=== PATIENT | female | born 2000 | race Caucasian/White ===

== ENCOUNTER 2023-02-13 23:31 | Outpatient (CLI) | payer SELFPAY ==
[2023-02-13 23:49] VITALS: BMI 27.2
[2023-02-13 23:56] LABS: Microscopic, Urine URINE MICROSCOPIC (MICROSCOPIC)
[2023-02-14] VITALS: BP 113/66; PULSE 74; RESP 17; TEMP 37; O2SAT 97; BMI 27.2
[2023-02-14 00:01] LABS: Appearance,Urine CLEAR (Clear); Bilirubin,Urine Negative (Negative); Blood, Urine Negative (Negative); Color,Urine YELLOW (Yellow); Glucose,Urine (UA) Negative (Negative); Ketones,Urine Negative (Negative); Leukocyte Esterase,Urine TRACE (Negative); Nitrate,Urine Negative (Negative); Protein,Urine Negative (Negative)
[2023-02-14 00:13] LABS: Bacteria,Urine Trace /lpf; WBC,Urine Occasional #/hpf (0-3)
[2023-02-14 01:24] LABS: Amphetamine/Metha Screen,Urine Negative ng/ml (<1000); Barbiturates Screen,Urine Negative ng/ml (<200)
[2023-02-14 01:25] LABS: Benzodiazepines Screen,Urine Negative ng/ml (<200)
[2023-02-14 01:26] LABS: Cannabinoid Screen,Urine Negative ng/ml (<50); Cocaine Screen,Urine Negative ng/ml (<300)
[2023-02-14 01:27] LABS: Methadone Screen,Urine Negative ng/ml (<300); Opiate Screen,Urine Negative ng/ml (<300)
[2023-02-14 01:28] LABS: Phencyclidine Screen,Urine Negative ng/ml (<25)
== END 2023-02-14 01:30 | disposition home or self-care (01) ==
LOC: OBOUT 23:41 → OB 23:42
PROVIDERS: Referring Provider Nurse Practitioner Obstetrics & Gynecology; Visit Provider Nurse Practitioner Obstetrics & Gynecology
DX: O26.892 Other specified pregnancy related conditions, second trimester (principal); Z3A.24 24 weeks gestation of pregnancy; W19.XXXA Unspecified fall, initial encounter
CPT/HCPCS: 80305; 81001; G0463

== ENCOUNTER → 2023-03-05 15:20 | Outpatient (CLI) | payer MEDICAID, SELFPAY ==
[2023-03-09 08:24] LABS: Neisseria gonorrhoeae, NAA Negative (Negative)
== END ==
PROVIDERS: PCP Obstetrics & Gynecology; Visit Provider Obstetrics & Gynecology
DX: Z34.92 Encounter for supervision of normal pregnancy, unspecified, second trimester (principal); Z3A.26 26 weeks gestation of pregnancy
CPT/HCPCS: 87086; 87491; 87591

== ENCOUNTER → 2023-03-10 14:30 | Outpatient (CLI) | payer MEDICAID, SELFPAY ==
[2023-03-10 15:03] LABS: Basophils % 0.2 % (0.1-2.0); Eosinophils % 0.4 % (0.1-12.0); Hematocrit 31.7 % (37.0-47.0); Hemoglobin 11.4 g/dL (12.2-16.2); Lymphocytes # 0.8 K/mm3 (0.7-4.5); Lymphocytes % 13.5 % (10-50); Mean Corpuscular HGB Conc 35.9 g/dL (31.8-35.4); Mean Corpuscular Hemoglobin 32.8 pg (27.0-31.2); Mean Corpuscular Volume 91.4 fl (81-99); Mean Platelet Volume 8.1 fl (7.4-10.4); Monocytes # 0.3 K/mm3 (0.1-1.0); Monocytes % 5.2 % (1.7-9.3); Neutrophils % 80.6 % (37.0-80.0); Platelet Count 199 K/mm3 (142-424); Red Blood Count 3.47 M/mm3 (4.20-5.40); Red Cell Distribution Width 13.3 % (11.5-17.5); White Blood Count 6.2 K/mm3 (4.8-10.8)
[2023-03-12 11:04] LABS: Rapid Plasma Reagin Ab Titer Non Reactive titer (NonRea<1:1); Rubella Antibodies, IgG <0.90 index (Immune >0.99)
[2023-03-13 13:43] LABS: HIV Screen 4th Generation wRfx Non Reactive; Hepatitis B Surface Antigen Negative; Hepatitis C Antibody Non Reactive
== END ==
PROVIDERS: Visit Provider Obstetrics & Gynecology
DX: Z34.92 Encounter for supervision of normal pregnancy, unspecified, second trimester (principal); Z3A.27 27 weeks gestation of pregnancy
CPT/HCPCS: 36415; 85025; 86593; 86703; 86762; 86850; 87340; 87380; G0432

== ENCOUNTER → 2023-03-14 14:25 | Outpatient (CLI) | payer MEDICAID, SELFPAY ==
--- NOTE | 2023-03-14 14:25 | US_ITS ---
PROCEDURE: US OB /MATERNAL DETAIL CLINICAL INDICATION: 24 week anatomy scan COMPARISON: No exams were available for comparison FINDINGS: Transabdominal sonographic images of the pelvis were obtained. From her last menstrual period she is 28 weeks 2 days. Single viable intrauterine gestation. Cephalic position. Placenta: Posteriorplacenta grade 1. There is an average amount of fluid. MVP 5.3 cm. The cervix appears satisfactory. Closed and measuring 3.2 cm in length. Complete survey performed and was unremarkable on the submitted images as in PACS. No discrete anomalies identified on survey imaging by technologist. Active fetus. Three-vessel cord with satisfactory umbilical cord insertion. 4- chamber heart noted. Aortic arch, LVOT, RVOT, appear normal. Survey of brain & ventricles Unremarkable. Cerebellum, cisterna magna, thalamus, choroid plexus appears normal. Face and neck survey unremarkable. Profile, nasion, lips and nose appeared normal. Diaphragm and chest views unremarkable. Abdomen: Both kidneys noted and unremarkable. Stomach and bladder noted and satisfactory. Spine: Survey of the spine satisfactory with no anomalies identified nor imaged. Cervical, thoracic and lower spine appear normal. Both arms and legs noted. Amniotic Fluid: Adequate. Measurements: Average ultrasound age 27weeks 2days. Estimated due date by ultrasound age 0106/11/2023. Estimated weight 1,032g BPD = 27weeks 4days OFD = 26weeks 6days HC = 26weeks 6days AC = 27weeks 1day FL = 27weeks 3days Growth Percentile= 8 Heart Rate = 142bpm Cerebellum = 27weeks Humerus = 28weeks HC/AC is 1.09 CI is 0.78 FL/BPD is 0.74 FL/AC is 0.23 IMPRESSION: 1. Viable fetus in the cephalic presentation with a posterior placenta grade 1. 2. The fluid is within normal limits. 3. Anatomical scan appears normal. 4. biometry is consistent with the dates. The AC is about 1 week behind. Dictated by: Tadeo Farfan MD 03/15/2023 09:02 Tadeo Farfan MD in [facility] 03/15/2023 09:02
== END ==
LOC: RAD 14:25
PROVIDERS: Visit Provider Obstetrics & Gynecology
DX: Z3A.26 26 weeks gestation of pregnancy; O09.32 Supervision of pregnancy with insufficient antenatal care, second trimester
CPT/HCPCS: 76811

== ENCOUNTER 2023-03-27 10:16 | Outpatient (CLI) | payer MEDICAID, SELFPAY ==
[2023-03-27 10:36] LABS: Basophils % 0.2 % (0.1-2.0); Eosinophils # 0.1 K/mm3 (0.0-0.4); Eosinophils % 1.2 % (0.1-12.0); Hematocrit 30.4 % (37.0-47.0); Hemoglobin 10.9 g/dL (12.2-16.2); Lymphocytes # 0.9 K/mm3 (0.7-4.5); Mean Corpuscular HGB Conc 35.9 g/dL (31.8-35.4); Mean Corpuscular Volume 89.3 fl (81-99); Mean Platelet Volume 8.4 fl (7.4-10.4); Monocytes # 0.3 K/mm3 (0.1-1.0); Monocytes % 4.5 % (1.7-9.3); Neutrophils # 5.9 K/mm3 (1.8-7.8); Neutrophils % 82.2 % (37.0-80.0); Platelet Count 192 K/mm3 (142-424); Red Blood Count 3.41 M/mm3 (4.20-5.40); White Blood Count 7.1 K/mm3 (4.8-10.8)
[2023-03-27 10:56] LABS: Glucose,Fasting 89 mg/dl (74-100)
[2023-03-27 11:30] VITALS: BP 141/72; PULSE 79; RESP 18; TEMP 36.6; O2SAT 100
[2023-03-27 12:10] LABS: Glucose 1 Hour 143 mg/dL (74-100)
== END 2023-03-27 11:30 | disposition home or self-care (01) ==
PROVIDERS: Visit Provider Obstetrics & Gynecology
DX: Z34.92 Encounter for supervision of normal pregnancy, unspecified, second trimester (principal); Z3A.29 29 weeks gestation of pregnancy
CPT/HCPCS: 36415; 82951; 85025; 96372; J2790

== ENCOUNTER 2023-04-22 14:45 | Outpatient (CLI) | payer MEDICAID, SELFPAY ==
[2023-04-22 15:09] VITALS: BMI 29.9
--- NOTE | 2023-04-22 15:10 | US_ITS ---
PROCEDURE: US OB BIOPHYSICAL PROFILE CLINICAL INDICATION: decreased HR COMPARISON: FINDINGS: Transabdominal sonographic images of the uterus were obtained. From her established due date she is 33weeks 4days. The following parameters are obtained: Cervix measures 4.4 cm. Viable fetus in the cephalic presentation with a posterior placenta grade 2 heart rate: 138bpm bpm Amniotic fluid index: 17.06cm, MVP 6.8 cm. Qualitative AFV: 2 breathing movements: 2 Gross body movements: 2 Tone: 2 Biophysical profile score: 8 No obvious anomalies evident.Kidneys, four-chamber heart, bladder, three-vessel cord appear normal. IMPRESSION: 1. Viable fetus in the cephalic presentation with a posterior placenta grade 2. 2. The fluid is within normal limits with an amniotic fluid index of 17.06 cm, MVP 6.8 cm. 3. Biophysical profile is 8/8 with good breathing movement seen. 4. heart rate is normal at 138 beats per minute. Dictated by: Tadeo Farfan MD 04/22/2023 18:56 Tadeo Farfan MD in [facility] 04/22/2023 18:56
[2023-04-22 15:25] VITALS: BMI 28.2
[2023-04-22 15:30] LABS: Microscopic, Urine URINE MICROSCOPIC (MICROSCOPIC)
[2023-04-22 15:47] LABS: Appearance,Urine CLEAR (Clear); Blood, Urine Negative (Negative); Color,Urine YELLOW (Yellow); Glucose,Urine (UA) Negative (Negative); Ketones,Urine Negative (Negative); Leukocyte Esterase,Urine Negative (Negative); Nitrate,Urine Negative (Negative); Protein,Urine TRACE (Negative); Specific Gravity, Urine >= 1.030 (1.005-1.030)
[2023-04-22 16:00] LABS: Barbiturates Screen,Urine Negative ng/ml (<200); Benzodiazepines Screen,Urine Negative ng/ml (<200)
[2023-04-22 16:01] LABS: Amphetamine/Metha Screen,Urine Negative ng/ml (<1000)
[2023-04-22 16:02] LABS: Cocaine Screen,Urine Negative ng/ml (<300); Methadone Screen,Urine Negative ng/ml (<300)
[2023-04-22 16:03] LABS: Bilirubin,Urine 1+ (Negative)
[2023-04-22 16:03] LABS: Cannabinoid Screen,Urine Negative ng/ml (<50)
[2023-04-22 16:04] LABS: Bacteria,Urine Trace /lpf; RBC,Urine Occasional #/hpf (0-3); Squamous Epithelial Cell,Urine 20-50 #/hpf (0-5)
[2023-04-22 16:05] LABS: Phencyclidine Screen,Urine Negative ng/ml (<25)
[2023-04-22 16:06] LABS: Opiate Screen,Urine Negative ng/ml (<300)
== END 2023-04-22 17:00 | disposition home or self-care (01) ==
LOC: OBOUT 14:48 → OB 14:49
PROVIDERS: PCP Student in an Organized Health Care Education/Training Program; Visit Provider Obstetrics & Gynecology
DX: O36.8130 Decreased fetal movements, third trimester, not applicable or unspecified (principal); Z3A.33 33 weeks gestation of pregnancy
CPT/HCPCS: 59025; 76819; 80305; 81001; G0463

== ENCOUNTER 2023-04-23 20:55 | Outpatient (CLI) | payer MEDICAID, SELFPAY ==
[2023-04-23 21:03] VITALS: BMI 29.9
[2023-04-23 21:09] LABS: Microscopic, Urine URINE MICROSCOPIC (MICROSCOPIC)
[2023-04-23 21:11] LABS: Appearance,Urine CLEAR (Clear); Bilirubin,Urine Negative (Negative); Blood, Urine TRACE-L (Negative); Color,Urine YELLOW (Yellow); Glucose,Urine (UA) Negative (Negative); Ketones,Urine Negative (Negative); Leukocyte Esterase,Urine 2+ (Negative); Nitrate,Urine Negative (Negative); Protein,Urine Negative (Negative)
[2023-04-23 21:28] LABS: Benzodiazepines Screen,Urine Negative ng/ml (<200)
[2023-04-23 21:29] LABS: Amphetamine/Metha Screen,Urine Negative ng/ml (<1000); Barbiturates Screen,Urine Negative ng/ml (<200)
[2023-04-23 21:30] LABS: Methadone Screen,Urine Negative ng/ml (<300); RBC,Urine Occasional #/hpf (0-3)
[2023-04-23 21:31] LABS: Cannabinoid Screen,Urine Negative ng/ml (<50); Cocaine Screen,Urine Negative ng/ml (<300)
[2023-04-23 21:32] LABS: Opiate Screen,Urine Negative ng/ml (<300)
[2023-04-23 21:33] VITALS: BP 123/74; PULSE 100; RESP 18; TEMP 37.1; O2SAT 97; BMI 29.9
[2023-04-23 21:33] LABS: Phencyclidine Screen,Urine Negative ng/ml (<25)
== END 2023-04-24 | disposition home or self-care (01) ==
LOC: OBOUT 20:56 → OB 20:56
PROVIDERS: Visit Provider Nurse Practitioner Obstetrics & Gynecology
DX: O47.03 False labor before 37 completed weeks of gestation, third trimester (principal); Z3A.33 33 weeks gestation of pregnancy
CPT/HCPCS: 59025; 80305; 81001; 87086; 96365; G0463

== ENCOUNTER 2023-05-27 16:27 | Outpatient (CLI) | payer MEDICAID, SELFPAY | END 2023-05-27 23:59 | PROVIDERS: PCP Obstetrics & Gynecology; Visit Provider Obstetrics & Gynecology | DX: Z34.90 Encounter for supervision of normal pregnancy, unspecified, unspecified trimester (principal) | CPT/HCPCS: 86403 ==

== ENCOUNTER 2023-05-29 09:59 | Outpatient (CLI) | payer MEDICAID, SELFPAY ==
[2023-05-29 10:12] VITALS: BMI 30.4
[2023-05-29 10:30] VITALS: BP 123/83; PULSE 97; RESP 16; TEMP 37.1; O2SAT 100; BMI 30.4
[2023-05-29 11:01] LABS: Microscopic, Urine URINE MICROSCOPIC (MICROSCOPIC)
[2023-05-29 11:08] LABS: Bilirubin,Urine Negative (Negative); Blood, Urine Negative (Negative); Color,Urine YELLOW (Yellow); Glucose,Urine (UA) Negative (Negative); Ketones,Urine TRACE (Negative); Leukocyte Esterase,Urine 1+ (Negative); Nitrate,Urine Negative (Negative); PH,Urine 6.5 (5.0-8.5); Protein,Urine TRACE (Negative); Urobilinogen,Urine 0.2 EU/dl (0.2)
[2023-05-29 11:23] LABS: Barbiturates Screen,Urine Negative ng/ml (<200); Benzodiazepines Screen,Urine Negative ng/ml (<200)
[2023-05-29 11:24] LABS: Amphetamine/Metha Screen,Urine Negative ng/ml (<1000)
[2023-05-29 11:25] LABS: Cocaine Screen,Urine Negative ng/ml (<300)
[2023-05-29 11:26] LABS: Cannabinoid Screen,Urine Negative ng/ml (<50)
[2023-05-29 11:27] LABS: Opiate Screen,Urine Negative ng/ml (<300); Phencyclidine Screen,Urine Negative ng/ml (<25)
[2023-05-29 11:30] LABS: Appearance,Urine Cloudy (Clear)
[2023-05-29 11:32] LABS: Squamous Epithelial Cell,Urine 50-100 #/hpf (0-5)
[2023-05-29 11:35] LABS: Bacteria,Urine 1+ /lpf; Methadone Screen,Urine Negative ng/ml (<300); Mucus,Urine 1+ /lpf
== END 2023-05-29 11:13 | disposition home or self-care (01) ==
LOC: OBOUT 10:01 → OB 10:02
PROVIDERS: Visit Provider Obstetrics & Gynecology
DX: O60.03 Preterm labor without delivery, third trimester (principal); Z3A.49 Greater than 42 weeks gestation of pregnancy; Z3A.38 38 weeks gestation of pregnancy
CPT/HCPCS: 59025; 80307; 81001; 87086; G0463

== ENCOUNTER 2023-05-30 03:02 | Inpatient (IN) | payer MEDICAID, SELFPAY ==
[2023-05-30 03:06] VITALS: BMI 30.4
[2023-05-30 03:10] VITALS: BP 123/77; PULSE 85; RESP 17; TEMP 36.8; O2SAT 100
[2023-05-30 03:42] LABS: Basophils % 0.2 % (0.1-2.0); Eosinophils % 0.5 % (0.1-12.0); Hematocrit 29.9 % (37.0-47.0); Hemoglobin 10.3 g/dL (12.2-16.2); Lymphocytes # 1.1 K/mm3 (0.7-4.5); Lymphocytes % 17.4 % (10-50); Mean Corpuscular HGB Conc 34.5 g/dL (31.8-35.4); Mean Corpuscular Hemoglobin 29.5 pg (27.0-31.2); Mean Corpuscular Volume 85.6 fl (81-99); Mean Platelet Volume 8.7 fl (7.4-10.4); Monocytes # 0.4 K/mm3 (0.1-1.0); Monocytes % 6.6 % (1.7-9.3); Neutrophils # 4.7 K/mm3 (1.8-7.8); Neutrophils % 75.4 % (37.0-80.0); Platelet Count 192 K/mm3 (142-424); Red Blood Count 3.49 M/mm3 (4.20-5.40); Red Cell Distribution Width 15.1 % (11.5-17.5); White Blood Count 6.2 K/mm3 (4.8-10.8)
[2023-05-30 03:50] LABS: Amphetamine/Metha Screen,Urine Negative ng/ml (<1000); Barbiturates Screen,Urine Negative ng/ml (<200)
[2023-05-30 03:51] LABS: Benzodiazepines Screen,Urine Negative ng/ml (<200); Cannabinoid Screen,Urine Negative ng/ml (<50)
[2023-05-30 03:52] LABS: Cocaine Screen,Urine Negative ng/ml (<300)
[2023-05-30 03:53] LABS: Methadone Screen,Urine Negative ng/ml (<300); Opiate Screen,Urine Negative ng/ml (<300)
[2023-05-30 03:54] LABS: Phencyclidine Screen,Urine Negative ng/ml (<25)
[2023-05-30] MEDS: DEXTROSE 5%-LACTATED RINGERS 1,000 ML 125 ML IV ×2 (04:10→20:01)
[2023-05-30] MEDS: OXYTOCIN/RINGERS LACTATE 30 UNITS/500 ML BAG IV ×2 (04:10→23:54)
[2023-05-30] MEDS: LACTATED RINGERS 1000ML 1,000 ML 250 ML IV (04:11)
[2023-05-30 04:35] VITALS: BP 123/77; PULSE 85; RESP 17; TEMP 36.8; O2SAT 100; BMI 30.4
--- NOTE | 2023-05-30 07:30 | P.CONPHA_ITS ---
Pharmacy Intervention Comments: MEDICATION RECONCILIATION COMPLETED ON PATIENT USING LIST FROM KITCHEN CLERK OFFICE. -KULWANT LEON, ELLAD
--- NOTE | 2023-05-30 07:30 | HMH.PHAINT1 ---
Pharmacy Intervention Comments: MEDICATION RECONCILIATION COMPLETED ON PATIENT USING LIST FROM [facility] SUPERVISOR OFFICE. -KULWANT LEON, ELLAD
--- NOTE | 2023-05-30 09:33 | P.HP_ITS ---
History of Present Illness *Admission Date: 05/30/23 *Reason for visit:: Induction *History of present illness: Sonia Trujillo is a 22-year-old G1, P0 who presented to labor and delivery this morning for an elective induction of labor. Today she is 39 weeks and 0 days gestation based on last menstrual period confirmed by second trimester ultrasound. She has an TAINA of 06/06/2023. Her was complicated by late to care several missed appointments. On presentation patient endorsed good movement and denies any leakage of fluid or vaginal bleeding. A-, antibody negative, HIV negative, hepatitis B negative, hepatitis C negative, syphilis negative, gonorrhea negative, chlamydia negative, rubella nonimmune She did not complete her 1 hour GTT screening Her GBS was collected at 38 weeks and 4 days gestation and has not resulted yet. [facility] Disclaimer: The information contained in this section may have been updated after the patient was seen, as this information can be updated by other users. 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 IUGR (intrauterine growth restriction) Late care Surgical History No history of previous surgery Family History Other Family history non-contributory Social History (Updated 05/30/23 @ 04:34 by Junie Terry RN) Smoking Status: Current every day smoker tobacco type: e-cigarettes alcohol intake: never substance use type: denies use current occupational status: unemployed Travel in the last 8 weeks: None Review of Systems Review of Systems Review of systems (narrative): Review of Systems Constitutional: Denies fever, chills, and sweats Eyes: Denies vision change/ pain Respiratory: Denies cough and shortness of breath Cardiovascular: Denies chest pain and lightheadedness Gastrointestinal: Admits abdominal pain with contractions. Denies nausea, vomiting. Genitourinary: Denies dysuria and incontinence Musculoskeletal: Denies shoulder pain and back pain Neurological: Denies change in speech or headaches Meds Home Medications and Allergies Home Medications Medication Instructions Recorded Confirmed Type ondansetron 4 mg disintegrating 4 mg PO Q6HP PRN nausea and 05/30/23 05/30/23 History tablet vomiting vits no.126-ferrous fum 1 tab PO DAILY Supplement 05/30/23 05/30/23 History 28 mg iron-folic acid 800 mcg tablet (Classic ) New Prescriptions to Start Prescriptions: Allergies Allergy/AdvReac Type Severity Reaction Status Date / Time cinnamon Allergy Unknown Verified 05/27/23 10:41 Exam Data for Last 24 hours Vital signs and Labs for Last 24 Hours: Temp Pulse Resp BP Pulse Ox O2 Del Method 98.2 F 85 17 123/77 100 Room Air 05/30/23 04:35 05/30/23 04:35 05/30/23 04:35 05/30/23 04:35 05/30/23 04:35 05/30/23 04:35 Laboratory Results - last 24 hr 05/30/23 03:10: Urine Opiates Screen Negative, Urine Methadone Screen Negative, Ur Barbituates Screen Negative, Ur Phencyclidine Scrn Negative, Ur Amphetamines Screen Negative, U Benzodiazepines Scrn Negative, Urine Cocaine Screen Negative, U Marijuana (THC) Screen Negative 05/30/23 03:28: WBC 6.2, RBC 3.49 L, Hgb 10.3 L, Hct 29.9 L, MCV 85.6, MCH 29.5, MCHC 34.5, RDW 15.1, Plt Count 192, MPV 8.7, Neut % (Auto) 75.4, Lymph % (Auto) 17.4, [place] % (Auto) 6.6, Eos % (Auto) 0.5, Baso % (Auto) 0.2, Neut # (Auto) 4.7, Lymph # (Auto) 1.1, [place] # (Auto) 0.4, Eos # (Auto) 0.0, Baso # (Auto) 0.0, Blood Type A Negative, Antibody Screen Negative I & O for Last 24 hours: Intake & Output 05/27/23 05/28/23 05/29/23 05/30/23 23:59 23:59 23:59 23:59 Weight 194 lb 0.003 oz Narrative: General: patient is alert oriented in no acute distress and responds appropriately to questions. HEENT: NCAT, EOMI, moist mucous membranes, neck supple with full ROM Cardiovascular: RRR +S1/S2, no murmurs or rubs Pulmonary: Clear to auscultation bilaterally, nonlabored breathing, symmetric chest rise Abdominal: Gravid abdomen appropriate for gestation. No guarding, rebound, or tenderness noted. SVE: 2/60/-3 on arrival Extremities: trace edema, no tenderness or cyanosis noted Skin: Normal turgor, intact, warm. Negative for erythema, pallor, petechia, or lesions Neurologic: Negative for sensory or motor deficit Psychiatric: Normal affect, normal thought process, good judgment and insight, no depression or anxious mood appreciated. *Routine HEENT Exam Head: Present normocephalic and atraumatic Eye: Present EOMI, PERRL and normal accommodation; Absent conjunctival icterus, scleral injection, nystagmus or exophthalmos ENT: Present mucous membranes moist *Routine Respiratory Exam Respiratory: Present CTA bilaterally, normal respiratory effort, able to speak in complete sentences and symmetric chest movement; Absent accessory muscle use, decreased breath sounds, rales, respiratory distress, wheezes, distant breath sounds or diminished air movement *Routine Cardiovascular Exam Cardiovascular: Present RRR, Normal S1 and Normal S2; Absent murmur or gallop *Routine Abdominal Exam Abdominal: Present soft and normoactive bowel sounds; Absent tenderness, distended, rebound or guarding *Routine Rectal Exam Rectal:: deferred *Routine Genitalia Exam Genitalia:: normal female Assessment and Plan *Assessment and plan (1) Anemia affecting first : Status: Acute Category: Medical Code(s): O99.019 - Anemia complicating , unspecified trimester (2) Rh negative status during : Status: Acute Category: Medical Code(s): O26.899 - Other specified related conditions, unspecified trimester; Z67.91 - Unspecified blood type, Rh negative (3) Late care: Status: Acute Category: Medical Code(s): O09.30 - Supervision of with insufficient care, unspecified trimester (4) Elective induction of labor planned: Status: Acute Category: Medical Plan - Monitor vitals - Admit to L&D for induction of labor - Plan for induction per pitocin protocol with AROM. AROM completed around 0810 with clear fluid. Infant and mom tolerated exam well. Exam at that time was /-2 - External FHR and TOCO monitor - GBS unknown/ Blood type: A-. antibody negative - Hemoglobin: 10.3, Plt: 192 - Plan for epidural - Anticipate vaginal delivery of Male : Chaimnisa Galarza Serenity Persaud #Rubella Nonimmune -Group Social Worker and vaccinate
--- NOTE | 2023-05-30 10:00 | EXP.ANES.CKL ---
[facility] Disclaimer: The information contained in this section may have been updated after the patient was seen, as this information can be updated by other users. 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 IUGR (intrauterine growth restriction) Late care Surgical History No history of previous surgery Family History Other Family history non-contributory Social History Smoking Status: Current every day smoker tobacco type: e-cigarettes alcohol intake: never substance use type: denies use current occupational status: unemployed Travel in the last 8 weeks: None [facility] Anesthesia Checklist Patient Identification Patient Identification: Arm Band and Verbal (Name & ) Structural Data Admitted From: Inpatient Planned Operative Procedure/s: Labor epidural Consent for Planned Operative Procedure(s) Verified: Yes NPO Status Verified Time NPO: 00:00 Chart Verification Results Verified: CBC and BMP Additional verifications Patient : Yes Anesthesia Reactions: No Airway Assessment Mallampati Score:: Class II C-Spine Mobility Assessed: Yes TMJ Mobility Assessed: Yes Dentition: Good Dentition Neurological Assessment Level of Consciousness: Awake Hx Seizures: No Numbness or tingling in extremities: No Anesthesia Plan Anesthesia Risk discussed: Yes Anesthesia Plan: Verified ASA Class: II Anesthesia Type: Epidural
[2023-05-30] MEDS: ALUMINUM/MAGNESIUM/SIMETHICONE 30ML UDC 30 ML PO ×2 (11:30→15:18)
--- NOTE | 2023-05-30 11:33 | SW/DCPLANNER ---
Addendum entered by Nitza Purcell 06/09/23 07:31: Infant cord screen is NEGATIVE. Original Note: I received a referral on this patient regarding: lack of care. Patient did not start care till February 2023 due to someone using her SSN and not having insurance. Patient stated this situation has been taken care of now. Patient is planned to delivered infant female today: Chaim Persaud. Infant's father was present at the time of my visit: Lex Persaud. Patient stated this is her first child. Patient, Lex, and patient's aunt and uncle (Nayan and Tamia Lafleur) will reside at [address] [place] [address] in [place] [address]. Patient's contact number is [phone]. Patient is interested in HANDS: I will make contact today and have them reach out to patient. Patient will also be making contact w/ WIC today to establish w/ services. Patient stated that she does have the following items at home: crib, carseat, clothing, diapers and will plan to breastfeed. PED MD will be Dr Bacon and patient stated that she will have transportation to all follow up appointments. [facility] Resource List will be provided to this patient. OB staff will follow up w/ me if any questions/needs after delivery.
[2023-05-30] MEDS: METOCLOPRAMIDE HCL 10MG/2ML VIAL 10 MG IVP (15:17)
[2023-05-30] MEDS: diphenhydrAMINE 50MG/ML VIAL 25 MG IV (21:51)
[2023-05-30] MEDS: CALCIUM CARBONATE 500MG CHEWTAB 1000 MG PO (21:54)
[2023-05-30] MEDS: AMPICILLIN SODIUM 2 GM in 0.9 % SODIUM CHLORIDE 100 ML IV (22:00)
[2023-05-31] VITALS (7 sets, daily range): BP systolic 112–127; BP diastolic 56–65; PULSE 67–102; RESP 17–18; TEMP 36.6–36.7; O2SAT 97–100
[2023-05-31] MEDS: ALUMINUM/MAGNESIUM/SIMETHICONE 30ML UDC 30 ML PO (00:02)
[2023-05-31] MEDS: ACETAMINOPHEN 1,000 MG/100 ML ML 400 MG IV (02:40)
[2023-05-31] MEDS: MORPHINE 2MG/ML SYRINGE 1 MG IV (02:40)
[2023-05-31] MEDS: AMPICILLIN SODIUM 2 GM in 0.9 % SODIUM CHLORIDE 100 ML IV (03:32)
[2023-05-31] MEDS: CEFAZOLIN 1GM VIAL 2 GM (05:30)
--- NOTE | 2023-05-31 06:40 | EXP.DN ---
Delivery Note Delivery Date:: 05/31/23 Delivery Time:: 06:10 Anesthesia Type: Spinal Was labor medically induced?: Yes Induction method: per pitocin protocol Gestational age (weeks): 39 Infant delivered prior to 39 weeks?: No Infant Gender: Female at 1 minute: 8 (2color) at 5 minutes: 9 (1color) Delivery Procedure:: Preoperative diagnosis: 1. at 39 completed weeks gestation, vertex 2. Rh negative 3. GBS unknown 4. Elective delivery, maternal request Postoperative diagnosis: 1. at 39 completed weeks gestation, vertex 2. Rh negative 3. GBS unknown 4. Elective delivery, maternal request Medications: 2 g IV Ancef. 500 mg IV azithromycin. 2 doses in labor ampicillin Findings: 1. Live viable femaleinfant: Chaim Michell Serenity Persaud. Weight: 8pounds 4ounces. Apgars 8 and 9 at 1 and 5 minutes respectively 2. Normal-appearing fallopian tubes and ovaries bilaterally Anesthesia: Zulma Foster Surgeon: Montserrat Peng DO EBL: 250 mL Procedure: Primary low transverse section Summary: Sonia Trujillo is a 22-year-old who presented for an elective induction of labor at 39 weeks gestation. Pitocin was started, per protocol. She experienced artificial rupture of membranes, clear fluid. The patient progressed through labor normally throughout the day. I checked her at approximately 530 and her cervix was noted to be 6-7/80/-2. At this time the patient was comfortable with an epidural and her Pitocin was at 18. A few hours after this the patient's epidural came out and she was in significant amount of pain. Anesthesia came in to replace epidural and I rechecked her cervix this was at approximately 9:30 at night and the patient had made no cervical change. She was very tired and worn out and the decision was made to turn the Pitocin off and give her a 2-hour break to let her eat something small and then restart the induction with a fresh bag of Pitocin. At approximately 1130 the patient was resting and Pitocin was restarted for the induction. Shortly after this the patient started having panic attacks and saying that her pain was out of control. On exam light gentle touch on her back where her epidural was caused her to scream and cry. Anesthesia was again consulted for evaluation. At this time the patient started requesting a elective primary delivery. Anesthesia was able to bolus her and give her some relief. At approximately 2:30 in the morning the patient refused to continue with induction and requested an elective primary delivery. Please see RN charting for official timeline. Given her induction break earlier in the evening delivery was postponed to achieve n.p.o. status Procedure explained in its entirety. The patient was counseled on the risks and benefits of section including bleeding, vascular injury, infection, and injury to the surrounding structures. I explosively talked to the patient about the risk of multiple deliveries. I discussed the increased risk to the patient with increased bowel and bladder injuries. I discussed the increased risks to the patient and future infants with placenta previa and placenta accreta spectrum increased incidence. I explained alternatives in detail to the patient. The patient continued to request primary elective delivery. Discussed hemorrhage requiring life saving blood transfusion resulting in blood born viral infection or allergic reaction was explained and the patient consented to blood transfusion. Possible need for further operative measures prolonging recovery time and hospitalization reviewed to include hysterectomy. Procedure explained in its entirety and patient had no further questions. Consented to procedure. The patient was taken back to the operating room where adequate spinal anesthesia was obtained. Pneumatic compression stockings applied to lower extremities. Above listed antibiotics were administered for infection prophylaxis. She was placed in the dorsal supine position with a leftward tilt. Urinary catheter had previously been placed and was noted to be draining blood-tinged urine. The patient was prepped and draped in sterile fashion. Anesthesia was tested and and found to be adequate. A Pfannenstiel skin incision was made with the scalpel. Subcutaneous bleeding vessels were cauterized with the bovie. The incision was taken down to the fascia with the bovie. The fascia was knicked in the midline and extended laterally with Doe's. The superior aspect of the fascia was grasped with Christo clamps and the rectus muscle was taken down bluntly. The rectus muscle was sharply dissected from the midline with Monica. This process was repeated inferiorly. The rectus muscles were in the midline, peritoneum was identified and entered bluntly. Antolin O retractor was placed. The lower uterine segment was easily identified, sharply incised, and entered bluntly with the surgeon's index finger. Incision was then extended in a superior and inferior fashion by blunt separation. The fetus was in cephalic presentation. The head was carefully elevated out of the pelvis. Of note, the head was not engaged at all with the significant amount of caput. Fundal pressure was applied when head was brought into incision. The infants head was delivered without difficulty. The shoulder and body followed without complication. The mouth and nose were suctioned with a bulb. The umbilical cord was clamped and cut. was taken to warmer for evaluation by the tabulating supervisor. Cord blood was collected. The placenta was delivered via fundal massage. IV Pitocin was initiated. The uterus was exteriorized and covered with wet lap sponge. Inside of the uterus was gently cleared of blood and clots with lap sponge. The hysterotomy was closed with 0 Monocryl in a running locked fashion. The lower uterine segment was visualized and noted to be hemostatic. The ovaries and tubes were found to be normal. The posterior aspect of the uterus was cleared of blood clot with a damp lap sponge. The uterus and ovaries were then returned to the abdominal cavity. The gutters were inspected bilaterally and cleared of blood and clots with lap sponges. The uterine incision was reinspected and hemostasis noted. Antolin O retractor was removed. The peritoneum was reapproximated using 2-0 Monocryl in a nonlocked running fashion. The fascia was closed in a running nonlocked fashion using 0 Vicryl. Fascia was noted as not having gaps or defects. The subcutaneous fat was closed with 2-0 Monocryl interrupted sutures x 3. Skin was closed with INSORB stapler in a subcuticular fashion. Patient tolerated the procedure well. All counts were correct x3 per nursing. Patient was taken to OB PACU and was stable in recovery room.
--- NOTE | 2023-05-31 06:52 | P.PNANES_ITS ---
[facility] Anesthesia Record Part I Anesthesia Record I Intake, IV Amount: 700 Hydration: Adequate Estimated blood loss (mL): 250 Urine output (mL): 150 Blood Pressure: 113/56 SaO2: 97 Pulse Rate: 102 Airway Patency: Patent Respiratory Rate: 17 Temperature: 98.1 F Patient is:: Awake Stable to PACU at:: 06:42
[2023-05-31] MEDS: MEPERIDINE 25MG/ML 1ML SYRINGE 25 MG IV (06:57)
--- NOTE | 2023-05-31 07:12 | SUR.PHASEI ---
0712- detailed report given to [facility] [place]. VSS, dressings CDI.
[2023-05-31] MEDS: KETOROLAC 30MG/ML VIAL 30 MG IV ×3 (07:42→19:43)
[2023-05-31] MEDS: OXYTOCIN/RINGERS LACTATE 30 UNITS/500 ML BAG 40 UNITS IV (07:47)
[2023-05-31] MEDS: miSOPROStoL 200 MCG TABLET 1000 MCG RC (08:50)
[2023-05-31] MEDS: ACETAMINOPHEN 500MG TAB 1000 MG PO ×3 (09:41→21:31)
[2023-05-31] MEDS: OXYCODONE 5MG IMMEDIATE RELEASE TABLET 5 MG PO ×2 (11:41→15:43)
[2023-05-31] MEDS: CEFAZOLIN SODIUM 2 GM in 0.9 % SODIUM CHLORIDE 100 ML IV ×2 (13:20→21:31)
[2023-05-31] MEDS: HYDROMORPHONE 2MG/ML SYRINGE 2 MG IV (18:11)
[2023-06-01] MEDS: OXYCODONE 5MG IMMEDIATE RELEASE TABLET 5 MG PO ×2 (04:03→18:44)
[2023-06-01] MEDS: ACETAMINOPHEN 500MG TAB 1000 MG PO ×4 (04:04→22:12)
[2023-06-01 04:12] VITALS: BP 111/52; PULSE 70; RESP 18; TEMP 36.6; O2SAT 99
[2023-06-01 08:16] VITALS: BP 116/55; PULSE 75; RESP 18; TEMP 36.4; O2SAT 100
[2023-06-01] MEDS: KETOROLAC 30MG/ML VIAL 30 MG IV (08:25)
[2023-06-01 09:34] LABS: Basophils % 0.2 % (0.1-2.0); Eosinophils % 0.1 % (0.1-12.0); Hematocrit 24.4 % (37.0-47.0); Hemoglobin 8.2 g/dL (12.2-16.2); Lymphocytes % 12.5 % (10-50); Mean Corpuscular HGB Conc 33.6 g/dL (31.8-35.4); Mean Corpuscular Hemoglobin 29.1 pg (27.0-31.2); Mean Corpuscular Volume 86.7 fl (81-99); Mean Platelet Volume 8.5 fl (7.4-10.4); Monocytes # 0.3 K/mm3 (0.1-1.0); Monocytes % 3.3 % (1.7-9.3); Neutrophils # 6.7 K/mm3 (1.8-7.8); Neutrophils % 83.8 % (37.0-80.0); Platelet Count 188 K/mm3 (142-424); Red Blood Count 2.82 M/mm3 (4.20-5.40); Red Cell Distribution Width 15.3 % (11.5-17.5); White Blood Count 7.9 K/mm3 (4.8-10.8)
[2023-06-01] MEDS: RHO(D) IMMUNE GLOBULIN 1,500 UNIT SYRINGE IM (12:44)
--- NOTE | 2023-06-01 15:07 | EXP.PN ---
Subjective *Date: 06/01/23 *Time: 22:07 Interval history: Sonia Trujillo is a 22 yo POD#1 from a primary delivery secondary to maternal request. She presented for an elective induction at 39 weeks initially. Labor was slow but uncomplicated. This morning the patient denies any pain and is sitting up in the chair. FOB is bedside caring for the . She is both breast feeding and pumping and doing great with both. States her lochia is scant. tolerating PO wihtout N/V. Ambulating, voiding difficulty or dysuria. Denies chest pain shortness of breath or pain in her legs. No further complaints at this time. Exam Data for Last 24 hours Vital signs and Labs for Last 24 Hours: Temp Pulse Resp BP Pulse Ox O2 Del Method 97.5 F L 75 18 116/55 L 100 Room Air 06/01/23 08:16 06/01/23 08:16 06/01/23 08:16 06/01/23 08:16 06/01/23 08:16 06/01/23 08:16 Laboratory Results - last 24 hr 06/01/23 08:47: WBC 7.9 D, RBC 2.82 L, Hgb 8.2 L, Hct 24.4 L, MCV 86.7, MCH 29.1, MCHC 33.6, RDW 15.3, Plt Count 188, MPV 8.5, Neut % (Auto) 83.8 H, Lymph % (Auto) 12.5, [place] % (Auto) 3.3, Eos % (Auto) 0.1, Baso % (Auto) 0.2, Neut # (Auto) 6.7, Lymph # (Auto) 1.0, [place] # (Auto) 0.3, Eos # (Auto) 0.0, Baso # (Auto) 0.0, Screen Negative, Baby's Rh Status Positive, Rhogam Infusion Rhogam release I & O for Last 24 hours: Intake & Output 05/29/23 05/30/23 05/31/23 06/01/23 23:59 23:59 23:59 23:59 Intake Total 700 / 700 Output Total 900 / 900 Balance -900 / -900 700 / 700 Weight 194 lb 0.003 oz Narrative: General: patient is alert oriented in no acute distress and responds appropriately to questions. Appears to be in minimal pain. Sitting up in the chair and doing well HEENT: NCAT, EOMI, moist mucous membranes, neck supple with full ROM Cardiovascular: RRR +S1/S2, no murmurs or rubs Pulmonary: Clear to auscultation bilaterally, nonlabored breathing, symmetric chest rise Abdominal: Fundus at the umbilicus, firm, and tenderness appropriate for the period. Extremities: 2+ edema, no tenderness or cyanosis noted Skin: Normal turgor, intact, warm. Negative for erythema, pallor, petechia, or lesions. Incision is clean dry and intact. It is open to air and healing well. no signs of drainage, redness or infection Neurologic: Negative for sensory or motor deficit Psychiatric: Normal affect, normal thought process, good judgment and insight, no depression or anxious mood appreciated. Constitutional Constitutional: no acute distress *Routine HEENT Exam Head: Present normocephalic Eye: Present EOMI and PERRL ENT: Present mucous membranes moist *Routine Neck Exam Neck: Present supple; Absent lymphadenopathy *Routine Respiratory Exam Respiratory: Present CTA bilaterally *Routine Cardiovascular Exam Cardiovascular: Present RRR *Routine Abdominal Exam Abdominal: Present soft and normoactive bowel sounds; Absent tenderness *Routine Extremities Exam Extremities: Present edema; Absent cyanosis or clubbing *Routine Skin Exam Skin: Present warm; Absent rash *Routine Neurological Exam Neurological: Present alert and oriented X3 Assessment and Plan *Assessment and plan (1) Elective induction of labor planned: Status: Acute Category: Medical (2) Rh negative status during : Status: Acute Category: Medical Code(s): O26.899 - Other specified related conditions, unspecified trimester; Z67.91 - Unspecified blood type, Rh negative (3) Late care: Status: Acute Category: Medical Code(s): O09.30 - Supervision of with insufficient care, unspecified trimester (4) : Status: Acute Category: Medical Code(s): Z34.90 - Encounter for supervision of normal , unspecified, unspecified trimester (5) delivery delivered: Status: Acute Category: Medical Code(s): O82 - Encounter for delivery without indication (6) Anemia, : Status: Acute Category: Medical Code(s): O90.81 - Anemia of the puerperium Plan Stable. POD#1 s/p PLTCS -Doing well. VSS. Serial lochia and fundal checks. -A-/antibody negative - rhogam indicated based on review of chart -breast feeding (and pumping), female infant -Contraception: IUD -Follow-up 2 weeks for routine visit and incision check #Anemia -Hemoglobin: 10.3--> 8.2 - asymptomatic anemia noted. Vitals stable. -EBL: 800mL (total) at time of surgery: 250mL -She was given [place] cytotec -Continue PO Iron at discharge home, discussed with pt #Rubella non-immune -Diabetes Trainer and vaccinate prior to discharge -Dispo: home tomorrow pending mother/ status
[2023-06-01] MEDS: PRENATAL MULTIVITAMIN W/IRON 1 EACH PO (16:08)
[2023-06-01] MEDS: IBUPROFEN 400 MG TABLET 800 MG PO (16:08)
[2023-06-01 20:42] VITALS: BP 125/59; PULSE 70; RESP 18; TEMP 36.9; O2SAT 99
[2023-06-02] MEDS: OXYCODONE 5MG IMMEDIATE RELEASE TABLET 5 MG PO (00:24)
[2023-06-02] MEDS: IBUPROFEN 400 MG TABLET 800 MG PO (00:24)
--- NOTE | 2023-06-02 04:28 | EXP.DC.SUM ---
General Admission date:: 05/30/23 Discharge date: 06/02/23 HPI HPI HPI: Sonia Trujillo is a 22-year-old G1, P0 who presented to labor and delivery this morning for an elective induction of labor. Today she is 39 weeks and 0 days gestation based on last menstrual period confirmed by second trimester ultrasound. She has an TAINA of 06/06/2023. Her was complicated by late to care several missed appointments. On presentation patient endorsed good movement and denies any leakage of fluid or vaginal bleeding. A-, antibody negative, HIV negative, hepatitis B negative, hepatitis C negative, syphilis negative, gonorrhea negative, chlamydia negative, rubella nonimmune She did not complete her 1 hour GTT screening Her GBS was collected at 38 weeks and 4 days gestation and has not resulted yet. Hospital Course Hospital Course Hospital Course: Sonia Trujillo is a 22 yo POD#2 from a primary delivery secondary to maternal request. She presented for an elective induction at 39 weeks initially. Labor was slow but uncomplicated. This morning the patient endorses burning pain at her incision. Denies any other pain. She is continuing to nurse, pump and supplement. States her lochia is scant. tolerating PO wihtout N/V. Ambulating, voiding difficulty or dysuria. Denies chest pain shortness of breath or pain in her legs. No further complaints at this time. pt desires dc home today. routine dc instructions reviewed with the pt in detail to include blues, and return to care precautions. pt v/u Exam Data for Last 24 hours Vital signs and Labs for Last 24 Hours: Temp Pulse Resp BP Pulse Ox O2 Del Method 98.5 F 70 18 125/59 L 99 Room Air 06/01/23 20:42 06/01/23 20:42 06/01/23 20:42 06/01/23 20:42 06/01/23 20:42 06/01/23 20:42 Laboratory Results - last 24 hr 05/30/23 03:28: Crossmatch (AHG) See Detail 06/01/23 08:47: WBC 7.9 D, RBC 2.82 L, Hgb 8.2 L, Hct 24.4 L, MCV 86.7, MCH 29.1, MCHC 33.6, RDW 15.3, Plt Count 188, MPV 8.5, Neut % (Auto) 83.8 H, Lymph % (Auto) 12.5, [place] % (Auto) 3.3, Eos % (Auto) 0.1, Baso % (Auto) 0.2, Neut # (Auto) 6.7, Lymph # (Auto) 1.0, [place] # (Auto) 0.3, Eos # (Auto) 0.0, Baso # (Auto) 0.0, Screen Negative, Baby's Rh Status Positive, Rhogam Infusion Rhogam release I & O for Last 24 hours: Intake & Output 05/30/23 05/31/23 06/01/23 06/02/23 23:59 23:59 23:59 23:59 Intake Total 700 / 700 Output Total 900 / 900 Balance -900 / -900 700 / 700 Weight 194 lb 0.003 oz Narrative: General: patient is alert oriented in no acute distress and responds appropriately to questions. Appears to be in minimal pain. Sitting up in the chair and doing well HEENT: NCAT, EOMI, moist mucous membranes, neck supple with full ROM Cardiovascular: RRR +S1/S2, no murmurs or rubs Pulmonary: Clear to auscultation bilaterally, nonlabored breathing, symmetric chest rise Abdominal: Fundus below the umbilicus, firm, and tenderness appropriate for the period. Extremities: 2+ edema, no tenderness or cyanosis noted Skin: Normal turgor, intact, warm. Negative for erythema, pallor, petechia, or lesions. Incision is clean dry and intact. It is open to air and healing well. no signs of drainage, redness or infection Neurologic: Negative for sensory or motor deficit Psychiatric: Normal affect, normal thought process, good judgment and insight, no depression or anxious mood appreciated. Constitutional Constitutional: no acute distress *Routine HEENT Exam Head: Present normocephalic Eye: Present EOMI and PERRL ENT: Present mucous membranes moist *Routine Neck Exam Neck: Present supple; Absent lymphadenopathy *Routine Respiratory Exam Respiratory: Present CTA bilaterally *Routine Cardiovascular Exam Cardiovascular: Present RRR *Routine Abdominal Exam Abdominal: Present soft and normoactive bowel sounds; Absent tenderness *Routine Extremities Exam Extremities: Present edema; Absent cyanosis or clubbing *Routine Skin Exam Skin: Present warm; Absent rash *Routine Neurological Exam Neurological: Present alert and oriented X3 Results Data Completed and Pending Labs on day of discharge: Labs from last 24 hours 06/01/23 05/30/23 08:47 03:28 WBC 7.9 D RBC 2.82 L Hgb 8.2 L Hct 24.4 L MCV 86.7 MCH 29.1 MCHC 33.6 RDW 15.3 Plt Count 188 MPV 8.5 Neut % (Auto) 83.8 H Lymph % (Auto) 12.5 Braxton % (Auto) 3.3 Eos % (Auto) 0.1 Baso % (Auto) 0.2 Neut # (Auto) 6.7 Lymph # (Auto) 1.0 [place]xton # (Auto) 0.3 Eos # (Auto) 0.0 Baso # (Auto) 0.0 Screen Negative Baby's Rh Status Positive Rhogam Infusion Rhogam release Crossmatch (AHG) See Detail DS: Diagnosis Discharge Diagnosis (1) Elective induction of labor planned: Status: Acute (2) Rh negative status during : Status: Acute Code(s): O26.899 - Other specified related conditions, unspecified trimester; Z67.91 - Unspecified blood type, Rh negative (3) Late care: Status: Acute Code(s): O09.30 - Supervision of with insufficient care, unspecified trimester (4) : Status: Acute Code(s): Z34.90 - Encounter for supervision of normal , unspecified, unspecified trimester (5) delivery delivered: Status: Acute Code(s): O82 - Encounter for delivery without indication (6) Anemia, : Status: Acute Code(s): O90.81 - Anemia of the puerperium Problem details: Stable. POD#2 s/p PLTCS -Doing well. VSS. Serial lochia and fundal checks. -A-/antibody negative - rhogam indicated based on review of infant chart -breast feeding (and pumping), female infant -Contraception: IUD -ice pack provided for incision burning pain -Follow-up 2 weeks for routine visit and incision check #Anemia -Hemoglobin: 10.3--> 8.2 - asymptomatic anemia noted. Vitals stable. 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 prior to discharge -Dispo: home today pending mother/ status Meds Home Medications and Allergies Home Medications Medication Instructions Recorded Confirmed Type ondansetron 4 mg disintegrating 4 mg PO Q6HP PRN nausea and 05/30/23 05/30/23 History tablet vomiting vits no.126-ferrous fum 1 tab PO DAILY Supplement 05/30/23 05/30/23 History 28 mg iron-folic acid 800 mcg tablet (Classic ) acetaminophen 500 mg tablet 500 mg PO Q6H PRN fever #30 tabs 06/02/23 Rx ferrous sulfate 325 mg (65 mg 325 mg PO DAILY #30 tabs 06/02/23 Rx iron) tablet,delayed release ibuprofen 800 mg tablet 800 mg PO Q8H PRN pain #60 tabs 06/02/23 Rx oxycodone 5 mg tablet 5 mg PO Q8H PRN pain #15 tabs 06/02/23 Rx sennosides 8.6 mg tablet (Senna 8.6 mg PO BIDP PRN Constipation 06/02/23 Rx Lax) #60 tabs simethicone 125 mg tablet 125 mg PO DAILY PRN abdominal 06/02/23 Rx distention #60 tabs New Prescriptions to Start Prescriptions: acetaminophen Montserrat Peng ferrous sulfate Montserrat Peng ibuprofen Montserrat Peng oxycodone Montserrat Peng sennosides [Senna Lax] Montserrat Peng simethicone Montserrat Peng Allergies Allergy/AdvReac Type Severity Reaction Status Date / Time cinnamon Allergy Unknown Verified 05/27/23 10:41 Discharge Plan Disposition Patient Disposition: Home, Self-Care Discharge Order Discharge Orders: Discharge Order (Routine); Ordered 06/02/23 Ordered By: Montserrat Peng Follow up Plan Follow up with: Montserrat Peng DO [Staff Physician] - 2 weeks Prescriptions/Medication Reconciliation: New sennosides [Senna Lax] 8.6 mg Tablet 8.6 mg PO BIDP PRN (Reason: Constipation) Qty: 60 2RF ibuprofen 800 mg tablet 800 mg PO Q8H PRN (Reason: pain) Qty: 60 2RF acetaminophen 500 mg tablet 500 mg PO Q6H PRN (Reason: fever) Qty: 30 3RF ferrous sulfate 325 mg (65 mg iron) tablet,delayed release (DR/EC) 325 mg PO DAILY Qty: 30 3RF oxycodone 5 mg tablet 5 mg PO Q8H PRN (Reason: pain) Qty: 15 0RF simethicone 125 mg tablet 125 mg PO DAILY PRN (Reason: abdominal distention) Qty: 60 2RF Continued ondansetron 4 mg tablet,disintegrating 4 mg PO Q6HP PRN (Reason: nausea and vomiting) Classic 28 mg iron- 800 mcg tablet 1 tab PO DAILY Problem Reconciliation Problems Reviewed?: Yes Patient Discharge Instructions ACTIVITY: Continue current activity DIET: continue same diet and regular diet Additional Instructions: Congratulations on the delivery of your sweet baby girl. It is my privilege to be your doctor and I am so thankful I could be a part of your special day. Discharge: 1. Take 800 mg Ibuprofen every 8 hours as needed for pain. You can also take 500-1000 mg of Tylenol in between doses, every 6-8 hours. Use prescription pain medicine for pain you feel in between 8 hour interval. -No driving while taking narcotic pain medications. In order to drive you should be able to slam on the brakes without significant abdominal pain. 2. Wean from prescription pain medicine first. Do not drive while taking it. 3. Prescription pain medicine can make you constipated. Colace can be taken 1-2 times per day as you need. Make sure to drink at least 8 cups of water per day. 4. Iron supplements can make you constipated. Colace can be taken 1-2 times per day as you need. You can take iron tablets every other day if constipation is too bad. 5. Nothing in the vagina for 6 weeks - no sex, douching, tampons. No tub baths 6. Do not lift greater than 15 pounds for 6 weeks, this is the equivalent of 2 gallons of milk. 7. Reasons to return to L&D or call On-Call doctor - fever (greater than 100.4) - heavy vaginal bleeding (soaking through 1 pad in less than 2 hours or passing clots that are egg sized) - vaginal discharge (malodorous and/or purulent) - bleeding or discharge from her incision - severe headaches, leg tenderness/edema, or any other symptoms that warrant immediate medical attention. 8. depression/blues - Normal to feel anxious/overwhelmed for first 2 weeks - Talk to your doctor if: anxiety lasts over 2 weeks, trouble bonding with baby, withdrawing from other family members, thoughts of harming yourself or others Montserrat Peng DO [facility] [phone] *Nothing in the Vagina for 6 weeks* *No strenuous activity* *No heavy lifting* *No tub baths until okay's by MD* Providers Primary Care Provider: Provider,Referral Admit Provider: Chaya Kwok Attending Provider: Montserrat Peng
[2023-06-02] MEDS: ACETAMINOPHEN 500MG TAB 1000 MG PO (04:37)
[2023-06-02] MEDS: MEASLES,MUMPS,RUBELLA VACCINE VIAL 0.5 ML SQ (10:51)
--- NOTE | 2023-06-02 13:13 | P.PNANES_ITS ---
[facility] Anesthesia Record Part II Anesthesia Record Part II Discharge Time: 07:12 Destination: Obstetric PACU nurse assessment reviewed?: Yes Patient Condition:: Good Anesthesia Complications:: None Swallowing reflex intact?: Yes Airway Patency: Patent Cyanosis?: No Blood Pressure: 115/60 SaO2: 100 Respiratory Rate: 18 Pulse Rate: 75 Temperature: 98.1 F Mental Status: Alert & Oriented Pain level:: 0 Nausea and/or vomitting:: None Intake, IV Amount: 0 Hydration: Adequate
[2023-06-02 13:14] VITALS: BP 115/60; PULSE 75; RESP 18; TEMP 36.7; O2SAT 100
== END 2023-06-02 11:45 | disposition home or self-care (01) | DRG 788 ==
PROVIDERS: Admitting Provider Obstetrics & Gynecology; Visit Provider Obstetrics & Gynecology
PROC: 10D00Z1 Extraction of Products of Conception, Low, Open Approach (ICD-10-PCS; CPT 59514; principal; 2023-05-31 05:00)
DX: O99.334 Smoking (tobacco) complicating childbirth (principal); F17.290 Nicotine dependence, other tobacco product, uncomplicated; Z3A.39 39 weeks gestation of pregnancy; Z37.0 Single live birth; O90.81 Anemia of the puerperium
CPT/HCPCS: 59514; 36415; 59025; 80307; 81001; 85025; 85461; 86403; 86850; 87086; 90707; 94761; C9290; G0283; G0463; J0131; J0290; J2405; J2790

== ENCOUNTER 2023-06-14 11:12 | Emergency (ER) | payer SELFPAY ==
[2023-06-14 11:13] VITALS: BP 131/91; PULSE 120; RESP 14; TEMP 37.5; O2SAT 98; BMI 27.6
--- NOTE | 2023-06-14 11:14 | ECG_ITS ---
APPROVED REPORT Exam: Resting ECG HR:115 bpm ECG Measurements Heart Rate 115 AXES VA 108 P 62 QRSd 94 QRS 67 QT 310 T 57 QTc 378 Conclusion SINUS TACHYCARDIA WITH SHORT VA INTERVAL POSSIBLE LEFT ATRIAL ENLARGEMENT [-0.1mV P-WAVE IN V1/V2] ABNORMAL RHYTHM ECG UNCONFIRMED REPORT Electronically signed by : Francisco J Minaya MD 06/14/2023 21:15:59
[2023-06-14 11:25] VITALS: PULSE 105
--- NOTE | 2023-06-14 11:28 | ED_ITS ---
Discharge Plan Disposition Patient Disposition: Home, Self-Care Condition: Good Prescriptions Prescriptions: New ondansetron 4 mg tablet,disintegrating 4 mg PO Q8H PRN (Reason: nausea and vomiting) 4 Days Qty: 12 0RF No Action sennosides [Senna Lax] 8.6 mg Tablet 8.6 mg PO BIDP PRN (Reason: Constipation) Qty: 60 2RF ferrous sulfate 325 mg (65 mg iron) tablet,delayed release (DR/EC) 325 mg PO DAILY Qty: 30 3RF simethicone 125 mg tablet 125 mg PO DAILY PRN (Reason: abdominal distention) Qty: 60 2RF Referrals Follow up/Referrals: Provider,Referral, MD [Primary Care Provider] - See instructions Activity Restrictions/Add. Instructions Additional Instructions/Restrictions: You were evaluated in the emergency department today. Please follow-up closely with your LUMBER STACKER OPERATOR as well as primary care provider. Take Tylenol and ibuprofen at home as needed for pain. Use your prescription for Zofran and take as needed for nausea and vomiting. Make sure that you are staying hydrated. Return to the emergency department for new or worsening symptoms. Clinical Impressions Clinical Impression: Abnormal uterine bleeding (AUB), Chest pain, Abdominal pain, Nausea, vomiting, and diarrhea Instructions Patient Instructions: DI for Atypical Chest Pain, DI for Diarrhea and Traveler's Diarrhea -- Adult, DI for Nausea -- Adult Discharge ED Provider: Patricia Howell HPI General Chief Complaint: Chest Pain Stated Complaint: Chest Pain Time Seen by Provider: 06/14/23 11:14 Mode of Arrival: Wheelchair Source of Information: Patient Limitations: No Limitations Description of Symptoms (Recalled from ER Triage Doc. by RN): 22 yo F presents to ED with c/o chest pain radiating into the back. pt reports vomitting this am as well. pt did have c section two weeks ago. pt reports she does not br eastfeed. History of Present Illness HPI narrative: This patient is a 22-year-old female who is status post 05/31/2023 after elective induction presented to the emergency department for evaluation with concern for chest pain, back pain, abdominal pain, nausea, vomiting, and chills at home. She states she overall is not feeling well. She started feeling bad yesterday. She did have a postop follow-up yesterday, at which poin t she was noted to have abnormal uterine bleeding. Ultrasound was ordered to evaluate for potential retained products of conception per the patient. On medical review, ultrasound not yet obtained. Patient states that she was vomiting biceps had no melena, hematochezia, or other concerns. She notes her chest pain is midsternal and radiates to her back. It was present prior to vomiting. No history of blood clots, clotting disorders, leg swelling, or other concerns. She notes that she has not had any foul-smelling vaginal discharge, but she has had passage of large clots that are worse than a regular period. Related Data Previous Rx's Medication Instructions Recorded ferrous sulfate 325 mg (65 mg 325 mg PO DAILY #30 tabs 06/02/23 iron) tablet,delayed release sennosides 8.6 mg tablet (Senna 8.6 mg PO BIDP PRN Constipation 06/02/23 Lax) #60 tabs simethicone 125 mg tablet 125 mg PO DAILY PRN abdominal 06/02/23 distention #60 tabs ondansetron 4 mg disintegrating 4 mg PO Q8H PRN nausea and 06/14/23 tablet vomiting 4 days #12 tabs Allergies Allergy/AdvReac Type Severity Reaction Status Date / Time cinnamon Allergy Unknown Verified 06/13/23 10:24 [facility] Disclaimer: The information contained in this section may have been updated after the patient was seen, as this information can be updated by other users. 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 Anemia, Late care Surgical History History of delivery Family History Other Family history non-contributory Social History Smoking Status: Current every day smoker tobacco type: e-cigarettes alcohol intake: never substance use type: denies use current occupational status: unemployed Travel in the last 8 weeks: None ROS Obtained: Yes All systems reviewed & no additional complaints except as documented Physical Exam General General appearance: alert and anxious Comment: Uncomfortable appearing Head Head exam: atraumatic and normocephalic Eye Eye exam: Present normal appearance, PERRL and EOMI ENT ENT exam: Present normal exam, normal oropharynx, mucous membranes moist and normal external ear exam Neck Neck exam: Present normal inspection, full ROM and trachea midline; Absent tenderness Chest Chest inspection: Present normal inspection and symmetric chest wall rise; Absent tenderness Respiratory Respiratory exam: Present normal lung sounds bilaterally; Absent respiratory distress, wheezes, stridor or accessory muscle use Cardiovascular Cardiovascular exam: Present normal rhythm and tachycardia Abdominal Exam Abdominal exam: Present soft, tenderness (Generalized, worse in the lower abdomen) and other (Incision is clean, dry, and intact); Absent distention, guarding, rebound or rigidity Extremities Exam Extremities exam: Present normal inspection, full ROM and normal capillary refill; Absent tenderness, edema or joint swelling Back Exam Back exam: Present normal inspection and full ROM; Absent tenderness Neurological Exam Neurological exam: Present alert, oriented X3, CN II-XII intact and normal gait; Absent motor sensory deficit Psychiatric Psychiatric exam: Present anxious Skin Skin exam: Present warm and dry HEART Score HEART Score HEART Score assessment performed?: Yes History (anamnesis): Slightly suspicious ECG: Normal Age: <45 years Risk factors: No known risk factors Troponin: </= normal limit HEART Score: 0 Critical Care Critical Care Time Critical Care Time: No Medical Decision Making Medical Records Medical records reviewed: Yes I reviewed the patient's medical records. Vadim Rivera Pt receiving controlled substance: No Vital Signs Vital Signs: 06/14/23 11:13 06/14/23 11:25 06/14/23 13:06 Temperature 99.5 F Temperature Source Oral Pulse Rate 105 H 82 Pulse Rate [Left Radial] 120 H Respiratory Rate 14 24 Blood Pressure 115/61 Blood Pressure [Right Arm] 131/91 H Blood Pressure Mean [Right Arm] 104 02 Sat by Pulse Oximetry 98 98 Oxygen Delivery Method Room Air Room Air Lab Data Labs: Lab Results 06/14/23 11:25: WBC 8.3, RBC 3.54 L, Hgb 9.9 L, Hct 29.8 L, MCV 84.2, MCH 28.0, MCHC 33.2, RDW 15.1, Plt Count 270, MPV 7.7, Neut % (Auto) 90.1 H, Lymph % (Auto) 6.1 L, [place] % (Auto) 3.1, Eos % (Auto) 0.7, Baso % (Auto) 0.1, Neut # (Auto) 7.4, Lymph # (Auto) 0.5 L, [place] # (Auto) 0.3, Eos # (Auto) 0.1, Baso # (Auto) 0.0 06/14/23 11:27: Procalcitonin 0.075 06/14/23 11:28: SARS-CoV-2 (PCR) Not detected, Influenza A Untype (PCR) Not detected, Influenza Type B (PCR) Not detected 06/14/23 11:30: Urine Color Yellow, Urine Appearance Clear, Urine pH 6.5, Ur Spe cific Divide 1.020, Urine Protein 2+, Urine Glucose (UA) Negative, Urine Ketones Negative, Urine Blood 3+, Urine Nitrate Negative, Urine Bilirubin Negative, Urine Urobilinogen 1.0, Ur Leukocyte Esterase 2+ A, Urine RBC 10-20, Urine WBC 5-10, Ur Squamous Epith Cells 5-10, Urine Bacteria 1+ 06/14/23 11:32: D-Dimer 1.18 H, Sodium 135 L, Potassium 3.9, Chloride 104, Carbon Dioxide 23, Anion Gap 11.9, BUN 9, Creatinine 0.70, Estimated Creat Clear 156, Estimated GFR 106, Est GFR ( Amer) 128, Glucose 105 H, Calcium 9.0, Total Bilirubin 0.7, AST 28, ALT 24, Alkaline Phosphatase 91, Troponin I < 0.01, Total Protein 7.4, Albumin 4.3, Globulin 3.1, Albumin/Globulin Ratio 1.4, Lipase 36, Serum HCG, Qual Negative 06/14/23 11:38: Lactate 1.4 06/14/23 11:25 06/14/23 11:32 Response Orders (Tests/Meds): ED MEDICATIONS Generic Name Dose Route Start Last Admin Trade Name Freq PRN Reason Stop Dose Admin Sodium Chloride 10 ml 06/14/23 11:58 06/14/23 11:59 Sodium Chloride 0.9% 10ml Syr (Rad Only) IV 07/14/23 11:57 10 ml NEEDED PRN Administration Maintain IV Site Discontinued Medications Generic Name Dose Route Start Last Admin Trade Name Freq PRN Reason Stop Dose Admin Acetaminophen 1,000 mg 06/14/23 11:18 06/14/23 11:36 Acetaminophen 1,000mg/100ml Vial IV 06/14/23 11:19 1,000 mg ONCE ONE Administration Lactated Ringer's 1,000 mls @ 999 mls/hr 06/14/23 11:17 06/14/23 11:36 Lactated Ringer's 1000 Ml Bag IV 06/14/23 12:17 999 mls/hr .Q1H1M ONE Administration Iopamidol 100 ml 06/14/23 11:58 06/14/23 11:59 Iopamidol-370 (76%);100ml Bottle IV 06/14/23 11:59 100 ml ONCE ONE Administration Ketorolac Tromethamine 15 mg 06/14/23 11:18 06/14/23 11:36 Ketorolac 30mg/Ml Vial IV 06/14/23 11:19 15 mg ONCE ONE Administration Ondansetron HCl 4 mg 06/14/23 11:18 06/14/23 11:36 Ondansetron 4mg/2ml Vial IV 06/14/23 11:19 4 mg ONCE ONE Administration Sodium Chloride 50 ml 06/14/23 11:58 06/14/23 11:59 0.9 % Sodium Chloride 50 Ml Vial IV 06/14/23 11:59 50 ml ONCE ONE Administration ORDERS Category Date Time Status CT abdomen pelvis w con Stat Cat Scan 06/14/23 11:35 Completed CTA Chest [CT angio chest PE protocol] Stat Cat Scan 06/14/23 11:35 Completed US transvaginal Stat Exams 06/14/23 11:35 Completed Complete Blood Count Auto Diff Stat Lab 06/14/23 11:25 Results Comprehensive Metabolic Panel Stat Lab 06/14/23 11:32 Completed D-Dimer Stat Lab 06/14/23 11:32 Completed Lactic Acid Stat Lab 06/14/23 11:38 Completed Lipase Stat Lab 06/14/23 11:32 Completed Procalcitonin Stat Lab 06/14/23 11:27 Completed Rapid PCR Covid and Flu A/B Stat Lab 06/14/23 11:28 Completed Serum [HCG Qualitative, Serum] Stat Lab 06/14/23 11:32 Completed Troponin I Q3H Lab 06/14/23 14:30 Ordered Troponin I Q3H Lab 06/14/23 17:30 Ordered Troponin I Stat Lab 06/14/23 11:32 Completed Urinalysis and Microscopic Stat Lab 06/14/23 11:30 Completed Urine Culture Stat Micro 06/14/23 11:30 Received ECG Data Tracing #1: Attestation: I reviewed this ECG and interpreted as documented below: ECG Narrative: Sinus tachycardia with a ventricular rate of [address] changes concerning for ischemia. Normal axis and intervals. ECG initial impression date: 06/14/23 ECG initial impression time: 11:16 MDM Narrative Medical Decision Narrative: In summary, this patient is a 22-year-old female presenting to the Emergency Department for evaluation of fever, abdominal pain, abnormal vaginal bleeding, chest pain, and back pain. Differential diagnoses considered include but are not limited to retained products of conception, sepsis, ACS, PE, viral syndrome, pyelonephritis. Ruling out the most morbid conditions drove assessment. On exam, the patient is uncomfortable but nontoxic-appearing. She is mildly tachycardic, but otherwise vital signs are normal. Workup included very broad lab evaluation including infectious metabolic workup as well as CT of the chest, abdomen, and pelvis. Transvaginal ultrasound was also obtained. Patient was given a bolus of IV fluids as well as IV Toradol, acetaminophen, and Zofran for symptomatic improvement. I independently interpreted CTs and ultrasound prior to the radiologist read and noted enlarged uterus without obvious retained products of conception. Please see their read for final interpretation. Labs were obtained that demonstrated no significant leukocytosis, normal procalcitonin, normal lactic acid, and no other acutely concerning abnormalities at this time. Hemoglobin is improving since discharge. Per radiology, patient does have some clots retained within the uterus, however she is not having active hemorrhaging so I do not feel that further inpatient evaluation is indicated at this time. I did give her very strict return precautions and instructions for close follow-up with her LUMBER STACKER OPERATOR for monitoring. On reassessment, patient had good improvement after administration of interventions as above. She is tolerating oral intake with normal vital signs on cardiac telemetry. Abdominal exam is benign. Given this, feel she likely has infectious gastroenteritis. I feel that she is appropriate for discharge with close follow-up. She was given strict return precautions and was discharged in stable condition after all questions were answered..
--- NOTE | 2023-06-14 11:35 | CT_ITS ---
PROCEDURE INFORMATION: Exam: CTA Chest With Contrast Exam date and time: 06/14/2023 11:47 AM Age: 22 years old Clinical indication: Chest wall pain; Additional info: Post chest/back/abdominal pain, vomiting TECHNIQUE: Imaging protocol: Computed tomographic angiography of the chest with contrast. Exam focused on the arteries. 3D rendering (Not supervised by radiologist): MIP and/or 3D reconstructed images were created by the technologist. Radiation optimization: All CT scans at this facility use at least one of these dose optimization techniques: automated exposure control; mA and/or kV adjustment per patient size (includes targeted exams where dose is matched to clinical indication); or iterative reconstruction. Contrast material: ISOVUE; Contrast volume: 100 ml; Contrast route: INTRAVENOUS (IV); COMPARISON: CT ABDOMEN PELVIS W CON 06/14/2023 11:47 AM FINDINGS: Pulmonary arteries: No evidence of filling defects to suggest pulmonary emboli. Aorta: Unremarkable. No aortic aneurysm. No aortic dissection. Lungs: No evidence of airspace opacity or interlobular septal thickening. Pleural spaces: Unremarkable. No pneumothorax. No pleural effusion. Heart: Unremarkable. No cardiomegaly. No pericardial effusion. Heart RV/LV ratio: The RV/LV ratio is less than 1. Coronary arteries: No significant coronary artery calcifications. Lymph nodes: Unremarkable. No enlarged lymph nodes. Intraperitoneal space: For findings in the abdomen and pelvis, please refer to the separately dictated abdomen and pelvis CT report under a separate accession number. Bones/joints: Unremarkable. No acute fracture. Soft tissues: Unremarkable. IMPRESSION: No evidence of filling defects to suggest pulmonary emboli.
--- NOTE | 2023-06-14 11:35 | CT_ITS ---
PROCEDURE INFORMATION: Exam: CT Abdomen And Pelvis With Contrast Exam date and time: 06/14/2023 11:47 AM Age: 22 years old Clinical indication: Vomiting; Prior surgery; Surgery date: <1 month; Surgery type: ; Additional info: Post chest/back/abdominal pain, vomiting TECHNIQUE: Imaging protocol: Computed tomography of the abdomen and pelvis with contrast. Radiation optimization: All CT scans at this facility use at least one of these dose optimization techniques: automated exposure control; mA and/or kV adjustment per patient size (includes targeted exams where dose is matched to clinical indication); or iterative reconstruction. Contrast material: ISOVUE; Contrast volume: 100 ml; Contrast route: IV; COMPARISON: US OB BIOPHYSICAL PROFILE 04/22/2023 3:41 PM FINDINGS: Liver: No focal hepatic lesions. Gallbladder and bile ducts: Gallbladder is distended without radiopaque cholelithiasis. No biliary ductal dilation. Pancreas: No peripancreatic fluid stranding. No main pancreatic ductal dilation. Spleen: No splenomegaly. Adrenal glands: The adrenal glands are normal. Kidneys and ureters: There is a simple cyst in the right kidney. Nephrograms are symmetric. No nephrolithiasis or hydroureteronephrosis on either side. No solid lesions Stomach and bowel: No bowel wall thickening or distention. No bowel wall thickening or distention. Appendix: A normal appendix is identified. Intraperitoneal space: Unremarkable. No free air. No significant fluid collection. Vasculature: Aorta is nonaneurysmal. Lymph nodes: No lymphadenopathy. Urinary bladder: Urinary bladder is decompressed Reproductive: Scattered foci of gas along the endometrial canal expected surgery. No evidence of bladder flap hematoma. Bones/joints: No acute osseous abnormality. Soft tissues: There is mild stranding along the Pfannenstiel incision in the lower abdomen. Other findings: For findings in the chest, please refer to the separately dictated chest CT report under a separate accession number. IMPRESSION: 1. Scattered foci of gas along the endometrial canal expected from recent surgery. No evidence of bladder flap hematoma. 2. No acute abnormality in the abdomen or pelvis. COMMENTS: Consistent with the [employer]'s Incidental Findings Committee white paper (J Am Catracho Radiol 2018): Any incidental renal lesion less than 1 cm or classified as too small to characterize, or any incidental cystic renal lesion characterized as simple-appearing, is likely benign. No follow-up imaging is recommended for these lesions per consensus recommendations based on imaging criteria.
--- NOTE | 2023-06-14 11:35 | US_ITS ---
PROCEDURE INFORMATION: Exam: US Pelvis, Transvaginal Exam date and time: 06/14/2023 12:16 PM Age: 22 years old Clinical indication: Pelvic pain; Prior surgery; Surgery date: <1 month; Surgery type: Csection; Additional info: Post fever, abd pain, heavy bleeding TECHNIQUE: Imaging protocol: Real-time transvaginal pelvic ultrasound with image documentation. Transvaginal imaging was used for better evaluation of the endometrium, adnexa, and/or cervix. COMPARISON: CT ABDOMEN PELVIS W CON 06/14/2023 11:47 AM FINDINGS: Uterus: Uterus measures 11.51 cm x 9.59 cm x 7.46 cm. Heterogeneous endometrial lining measuring 11.7 mm. Heterogeneity is favored to represent a combination of blood clots from prior . No abnormal vascularity to suggest retained products of conception. Focal defect in the anterior inferior uterine segment in keeping with recent section. Right ovary/adnexa: Right ovary measures 4.61 cm x 2.82 cm x 1.91 cm. Ovarian stroma is unremarkable. There is normal arterial inflow and venous outflow. Right ovarian volume is 13 mL. Left ovary/adnexa: Left ovary measures 2.8 cm x 1.84 cm x 2.11 cm. Ovarian stroma is unremarkable. There is normal arterial inflow and venous outflow. Left ovarian volume is 5.69 mL. Intraperitoneal space: No free fluid. IMPRESSION: 1. Heterogeneous endometrial lining measuring 11.7 mm. Heterogeneity is favored to represent blood clots from prior . No abnormal vascularity to suggest retained products of conception. 2. Expected defect in the anterior lower uterine segment. No evidence of dehiscence or collection to suggest bladder flap hematoma 3. Unremarkable evaluation of the ovaries
[2023-06-14 11:36] LABS: Basophils % 0.1 % (0.1-2.0); Eosinophils # 0.1 K/mm3 (0.0-0.4); Eosinophils % 0.7 % (0.1-12.0); Hematocrit 29.8 % (37.0-47.0); Hemoglobin 9.9 g/dL (12.2-16.2); Lymphocytes # 0.5 K/mm3 (0.7-4.5); Lymphocytes % 6.1 % (10-50); Mean Corpuscular HGB Conc 33.2 g/dL (31.8-35.4); Mean Corpuscular Volume 84.2 fl (81-99); Mean Platelet Volume 7.7 fl (7.4-10.4); Monocytes # 0.3 K/mm3 (0.1-1.0); Monocytes % 3.1 % (1.7-9.3); Neutrophils # 7.4 K/mm3 (1.8-7.8); Neutrophils % 90.1 % (37.0-80.0); Platelet Count 270 K/mm3 (142-424); Red Blood Count 3.54 M/mm3 (4.20-5.40); Red Cell Distribution Width 15.1 % (11.5-17.5); White Blood Count 8.3 K/mm3 (4.8-10.8)
[2023-06-14] MEDS: ACETAMINOPHEN 1,000MG/100ML VIAL 1000 MG IV (11:36)
[2023-06-14] MEDS: KETOROLAC 30MG/ML VIAL 15 MG IV (11:36)
[2023-06-14] MEDS: ONDANSETRON 4MG/2ML VIAL 4 MG IV (11:36)
[2023-06-14] MEDS: LACTATED RINGERS 1000ML 1,000 ML 999 ML IV (11:36)
[2023-06-14 11:37] LABS: Chloride 104 mmol/L (98-107)
[2023-06-14 11:38] LABS: Potassium 3.9 mmoL/L (3.5-5.1); Sodium 135 mmol/L (136-145)
[2023-06-14 11:39] LABS: Microscopic, Urine URINE MICROSCOPIC (MICROSCOPIC)
[2023-06-14 11:40] LABS: Appearance,Urine CLEAR (Clear); Blood, Urine 3+ (Negative); Color,Urine YELLOW (Yellow); Glucose,Urine (UA) Negative (Negative); Ketones,Urine Negative (Negative); Leukocyte Esterase,Urine 2+ (Negative); Nitrate,Urine Negative (Negative); PH,Urine 6.5 (5.0-8.5); Protein,Urine 2+ (Negative)
[2023-06-14 11:40] LABS: Alanine Aminotransferase 24 U/L (12-78); Aspartate Amino Transferase 28 U/L (14-36); Blood Urea Nitrogen 9 mg/dl (7-17); Creatinine Clearance Estimated 156 mL/min (50-200); Estimated Glomerular Filt Rate 106 ml/min (>60); GFR (African American) 128 ML/MIN (>60)
[2023-06-14 11:41] LABS: MANUAL DIFFERENTIAL MANUAL DIFFERENTIAL (MANUAL DIFF)
[2023-06-14 11:41] LABS: Albumin Level 4.3 g/dl (3.5-5.0); Albumin/Globulin Ratio 1.4 (1.1-1.8); Alkaline Phosphatase 91 U/L (38-126); Anion Gap 11.9 mEq/L (5-15); Bilirubin,Total 0.7 mg/dl (0.2-1.3); Carbon Dioxide 23 mmol/L (22.0-30.0); Globulin 3.1 g/dL (1.3-3.2); Glucose 105 mg/dl (74-100); Lipase 36 U/L (23-300); Total Protein,Serum 7.4 g/dl (6.3-8.2)
[2023-06-14 11:43] LABS: Bilirubin,Urine Negative (Negative)
[2023-06-14 11:45] LABS: D-Dimer 1.18 ug/mL (0.0-0.5)
--- NOTE | 2023-06-14 11:51 | PC.NURSE ---
Pt gone to RAD via stretcher
[2023-06-14 11:54] LABS: Lactic Acid 1.4 mmol/L (0.7-2.1)
[2023-06-14 11:56] LABS: Troponin I < 0.01 ng/ml (0.00-0.034)
[2023-06-14 11:59] LABS: HCG Qualitative, Serum Negative (Negative)
[2023-06-14] MEDS: IOPAMIDOL-370 (76%);100ML BOTTLE 100 ML IV (11:59)
[2023-06-14] MEDS: 0.9 % SODIUM CHLORIDE 50 ML VIAL IV (11:59)
[2023-06-14] MEDS: SODIUM CHLORIDE 0.9% 10ML SYR (RAD ONLY) 10 ML IV (11:59)
[2023-06-14 12:01] LABS: Procalcitonin 0.075 ng/mL (0.0-2.0)
--- NOTE | 2023-06-14 12:01 | PC.NURSE ---
Pt returned from RAD
[2023-06-14 12:04] LABS: Bacteria,Urine 1+ /lpf
--- NOTE | 2023-06-14 12:15 | PC.NURSE ---
Pt gone for u/s via wheelchair
--- NOTE | 2023-06-14 12:45 | PC.NURSE ---
Pt returned from u/s
--- NOTE | 2023-06-14 13:03 | PC.NURSE ---
pt provided starry to begin PO challenge.
[2023-06-14 13:06] VITALS: BP 115/61; PULSE 82; RESP 24; O2SAT 98
[2023-06-14 13:33] VITALS: BP 115/61; PULSE 82; RESP 16; TEMP 36.7; O2SAT 95
[2023-06-14 14:17] LABS: Lymphocytes % 2 % (10-50); Monocytes % 3 % (2-9); Neutrophils % 90 % (42-76); Total Cells Counted 100
[2023-06-14 14:20] LABS: Platelet Estimate Normal; RBC Morphology Normal
== END 2023-06-14 13:42 | disposition home or self-care (01) ==
PROVIDERS: Emergency Provider Emergency Medicine
DX: O99.63 Diseases of the digestive system complicating the puerperium (principal); O99.43 Diseases of the circulatory system complicating the puerperium; O72.2 Delayed and secondary postpartum hemorrhage; O99.335 Smoking (tobacco) complicating the puerperium; R07.9 Chest pain, unspecified; R10.9 Unspecified abdominal pain; R11.2 Nausea with vomiting, unspecified; R19.7 Diarrhea, unspecified; F17.290 Nicotine dependence, other tobacco product, uncomplicated; R00.0 Tachycardia, unspecified
CPT/HCPCS: 71275; 74177; 76830; 80053; 81001; 83605; 83690; 84145; 84484; 84703; 85007; 85025; 85378; 87086; 93005; 96361; 96374; 96375; 99285; J0131; J2405; Q9967

== ENCOUNTER 2024-03-06 14:53 | Emergency (ER) | payer MEDICAID, SELFPAY ==
[2024-03-06 14:55] VITALS: BP 119/76; PULSE 75; O2SAT 97
[2024-03-06 14:57] VITALS: BP 119/76; PULSE 89; RESP 18; TEMP 36.7; O2SAT 98; BMI 26.9
[2024-03-06 15:00] VITALS: BP 119/77; PULSE 81; O2SAT 98
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
[2024-03-06 15:30] VITALS: BP 115/77; PULSE 76; O2SAT 98
[2024-03-06 15:44] VITALS: BP 115/77; PULSE 76; RESP 13; TEMP 36.7
== END 2024-03-06 15:46 | disposition home or self-care (01) ==
PROVIDERS: Emergency Provider Student in an Organized Health Care Education/Training Program; PCP Internal Medicine Adolescent Medicine
DX: S01.81XA Laceration without foreign body of other part of head, initial encounter (principal); R51.9 Headache, unspecified; W22.8XXA Striking against or struck by other objects, initial encounter; Y93.9 Activity, unspecified; Y92.9 Unspecified place or not applicable
CPT/HCPCS: 12011; 99282

== ENCOUNTER 2024-03-12 20:06 | Emergency (ER) | payer SELFPAY ==
--- NOTE | 2024-03-12 20:21 | ED_ITS ---
<Statement entered by Patricia Howell DO - 03/12/24 21:52> I was consulted by the KEESHA, and we discussed the complexity of the problems being addressed. I approved the treatment and management plan for this patient's care in the emergency department, thus performing a substantive portion of the medical decision making. Patricia Howell DO Discharge Plan Disposition Patient Disposition: Home, Self-Care Condition: Good Prescriptions Prescriptions: No Action sennosides [Senna Lax] 8.6 mg Tablet 8.6 mg PO BIDP PRN (Reason: Constipation) Qty: 60 2RF ferrous sulfate 325 mg (65 mg iron) tablet,delayed release (DR/EC) 325 mg PO DAILY Qty: 30 3RF simethicone 125 mg tablet 125 mg PO DAILY PRN (Reason: abdominal distention) Qty: 60 2RF ondansetron 4 mg tablet,disintegrating 4 mg PO Q8H PRN (Reason: nausea and vomiting) 4 Days Qty: 12 0RF Referrals Follow up/Referrals: Provider,Referral, MD [Primary Care Provider] - See instructions Activity Restrictions/Add. Instructions Additional Instructions/Restrictions: Keep checking the portal for your results. Follow-up with your PCP for any new or worsening symptoms or return to the ER as needed. Clinical Impressions Clinical Impression: Possible exposure to STI, Encounter for removal of sutures Print Language Print Language: Kittitian Discharge ED Provider: Patricia Howell General Adult HPI General Chief complaint: Recheck/Abnormal Lab/Rx Stated complaint: stitches removed/brow STD check Time Seen by Provider: 03/12/24 20:21 History of Present Illness HPI narrative: Patient presented initially for suture removal in her left eyebrow. However patient also was informed that she may have been exposed to a sexually transmitted infection and wanted to be checked. She does not have any symptoms. Related Data Previous Rx's ?Medication ?Instructions ?Recorded ferrous sulfate 325 mg (65 mg 325 mg PO DAILY #30 tabs 06/02/23 iron) tablet,delayed release sennosides 8.6 mg tablet (Senna 8.6 mg PO BIDP PRN Constipation 06/02/23 Lax) #60 tabs simethicone 125 mg tablet 125 mg PO DAILY PRN abdominal 06/02/23 distention #60 tabs ondansetron 4 mg disintegrating 4 mg PO Q8H PRN nausea and 06/14/23 tablet vomiting 4 days #12 tabs Allergies Allergy/AdvReac Type Severity Reaction Status Date / Time cinnamon Allergy Unknown Verified 06/13/23 10:24 [facility] Disclaimer: The information contained in this section may have been updated after the patient was seen, as this information can be updated by other users. 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) Anemia, Late care Surgical History , DRAGGER) History of delivery Family History , DRAGGER) Family history non-contributory Social History , DRAGGER) Smoking Status: Current every day smoker tobacco type: e-cigarettes alcohol intake: never substance use type: denies use current occupational status: unemployed Travel in the last 8 weeks: None Other 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 Have you received the Flu Vaccine for this season: No Have you received the Pneumonia Vaccine: No ROS Obtained: Yes Systems reviewed as appropriate & no additional complaints except as documented Physical Exam General General appearance: alert and in no apparent distress Respiratory Respiratory exam: Present normal lung sounds bilaterally Cardiovascular Cardiovascular exam: Present regular rate Neurological Exam Neurological exam: Present alert Medical Decision Making Medical Records Medical records reviewed: Yes I reviewed the patient's medical records. Screening: Per USPSTF and CDC recommendations, given the prevalence of disease in our region, it is our hospital?s policy to screen for HIV and viral Hepatitis for all patients aged 18 and over and those with ongoing risk factors. Vadim Inquiry Pt receiving controlled substance: No Vital Signs: 03/12/24 20:30 Temperature 98.3 F Temperature Source Oral Pulse Rate [Left Radial] 95 H Respiratory Rate 18 Blood Pressure [Right Arm] 129/83 Blood Pressure Mean [Right Arm] 98 Blood Pressure Source [Right Arm] Automatic Cuff 02 Sat by Pulse Oximetry 100 Oxygen Delivery Method Room Air Orders (Tests/Meds): ORDERS Category Date Time Status UA [Urinalysis and Microscopic] Stat Lab 03/12/24 20:36 Ordered Medical Decision Narrative: In summary patient is a 3-year-old female who presents to the emergency department for evaluation of suture removal and sexually transmitted infection exposure possibly. Patient is hemodynamically stable upon arrival, afebrile. Physical exam shows a well-healing laceration in the hairline of the left eyebrow. Patient denies any chest pain vaginal discharge burning with urination shortness of breath fever dysuria dyspareunia. Patient was informed that another sexual partner of someone she was sexually involved with may have tested positive for sexually-transmitted disease. As she has no symptoms that she wanted to have to be checked .. Differential diagnosis includes possible STI exposure and obviously with risky sexual behaviors other possibilities exist however patient is asymptomatic thus less likely. Initial workup will be conducted with urinalysis GC and chlamydia urine . Initial interventions were considered however patient is asymptomatic and for now we will defer. Patient was educated on the time frame of results and to follow-up with her portal which she is familiar with. Subsequently I removed the 3 left eyebrow stitches with no evidence of infection and good interval healing. Patient is discharged with follow-up with PCP or return to the emergency department for any worsening signs or symptoms as needed. Critical Care Critical Care Time Critical Care Time: No
[2024-03-12 20:30] VITALS: BP 129/83; PULSE 95; RESP 18; TEMP 36.8; O2SAT 100; BMI 26.2
--- NOTE | 2024-03-12 20:31 | PC.NURSE ---
UA sent to lab at 2030
[2024-03-12 20:37] VITALS: BP 129/83; PULSE 95; RESP 18; TEMP 36.8; O2SAT 100
[2024-03-12 20:40] LABS: Microscopic, Urine URINE MICROSCOPIC (MICROSCOPIC)
[2024-03-12 20:41] LABS: Appearance,Urine CLEAR (Clear); Bilirubin,Urine Negative (Negative); Blood, Urine TRACE-I (Negative); Color,Urine YELLOW (Yellow); Glucose,Urine (UA) Negative (Negative); Ketones,Urine Negative (Negative); Leukocyte Esterase,Urine 3+ (Negative); Nitrate,Urine Negative (Negative); PH,Urine 6.5 (5.0-8.5); Protein,Urine Negative (Negative); Specific Gravity, Urine 1.015 (1.005-1.030)
[2024-03-12 20:54] LABS: Bacteria,Urine 4+ /lpf; RBC,Urine TNTC #/hpf (0-3); Squamous Epithelial Cell,Urine 20-50 #/hpf (0-5); WBC,Urine TNTC #/hpf (0-3)
--- NOTE | 2024-03-15 08:36 | PC.NURSE ---
attempted to reach pt about ne rx r/t urine culture. pt did not answer, unable to leave message rx sent to clinic pharmacy by dr vanegas
[2024-03-15 21:09] LABS: Neisseria gonorrhoeae, NAA Negative (Negative)
== END 2024-03-12 20:41 | disposition home or self-care (01) ==
PROVIDERS: Physician Assistant; Emergency Provider Emergency Medicine
DX: Z48.1 Encounter for planned postprocedural wound closure (principal); Z20.2 Contact with and (suspected) exposure to infections with a predominantly sexual mode of transmission
CPT/HCPCS: 81001; 87086; 87088; 87186; 87491; 87591; 99281

== ENCOUNTER 2024-05-14 18:06 | Outpatient (CLI) | payer SELFPAY ==
[2024-05-14 18:14] VITALS: BMI 29.7
--- NOTE | 2024-05-14 18:25 | US_ITS ---
PROCEDURE INFORMATION: Exam: US After First Trimester, Transabdominal Exam date and time: 05/14/2024 7:08 PM Age: 23 years old Clinical indication: Lmp or gestational age (in weeks): 31w1d; Other: Vaginal pressure and swelling; ; Prior surgery; Surgery date: 6+ months; Surgery type: Previous c section; Additional info: Unknown gestational age, vaginal swelling and pressure, no care, no known lmp or natasha TECHNIQUE: Imaging protocol: Real-time transabdominal obstetrical ultrasound of the maternal pelvis and a second or third trimester with image documentation. COMPARISON: US OB BIOPHYSICAL PROFILE 04/22/2023 3:41 PM FINDINGS: Gestation: Single intrauterine heart rate: 130 bpm presentation and position: Breech Placenta: Posterior, grade 1 without evidence of placenta previa or abruption. Amniotic fluid (Qualitative): Amniotic fluid index: TOMAS is 14.54 cm. MVP 4.3 cm. ANATOMY: Unremarkable survey of visualized intracranial structures, stomach, kidneys, urinary bladder, three-vessel cord, diaphragm, cord insertion, three-vessel heart view, aortic arch, 4-chamber heart, RVOT, LVOT, extremities, spine and facial structures. BIOMETRY: Gestational age (AUA): 31 w 1 d Estimated due date (AUA): 07/15/2024 Estimated weight: 1713.9 g. EFW by AC, BPD, FL, HC, Hadlock 1985. 38.66 percentile Biparietal diameter (BPD): 7.58 cm. EGA (BPD) is 30 w 3 d Head circumference (HC): 28.94 cm. EGA (HC) is 31 w 6 d Abdominal circumference (AC): 27.79 cm. EGA (AC) is 31 w 6 d Humerus length (HL): 5.21 cm. EGA (HL) is 30 w 2 d Femur length (FL): 5.73 cm. EGA (FL) is 30 w 0 d HC/AC: 1.04 FL/BPD: 0.76 FL/AC: 0.21 MATERNAL: Cervix: Cervical length measures 3.31 cm. Right ovary/adnexa: Obscured by bowel gas. Left ovary/adnexa: Obscured by bowel gas. Intraperitoneal space: No free fluid in the pelvis IMPRESSION: Single VIABLE intrauterine gestation.
[2024-05-14 19:06] LABS: Microscopic, Urine URINE MICROSCOPIC (MICROSCOPIC)
[2024-05-14 19:07] LABS: Basophils % 0.1 % (0.1-2.0); Eosinophils % 0.1 % (0.1-12.0); Hematocrit 28.4 % (37.0-47.0); Hemoglobin 9.3 g/dL (12.2-16.2); Lymphocytes # 0.9 K/mm3 (0.7-4.5); Lymphocytes % 11.5 % (10-50); Mean Corpuscular HGB Conc 32.7 g/dL (31.8-35.4); Mean Corpuscular Hemoglobin 27.4 pg (27.0-31.2); Mean Corpuscular Volume 83.5 fl (81-99); Mean Platelet Volume 9.6 fl (7.4-10.4); Monocytes # 0.5 K/mm3 (0.1-1.0); Monocytes % 6.8 % (1.7-9.3); Neutrophils # 6.4 K/mm3 (1.8-7.8); Neutrophils % 80.9 % (37.0-80.0); Platelet Count 210 K/mm3 (142-424); Red Cell Distribution Width 13.6 % (11.5-17.5); White Blood Count 7.9 K/mm3 (4.8-10.8)
[2024-05-14 19:10] LABS: Appearance,Urine CLEAR (Clear); Bilirubin,Urine Negative (Negative); Blood, Urine Negative (Negative); Color,Urine YELLOW (Yellow); Glucose,Urine (UA) Negative (Negative); Ketones,Urine Negative (Negative); Leukocyte Esterase,Urine 2+ (Negative); Nitrate,Urine Negative (Negative); PH,Urine 6.5 (5.0-8.5); Protein,Urine Negative (Negative); Specific Gravity, Urine 1.025 (1.005-1.030); Urobilinogen,Urine 0.2 EU/dl (0.2)
[2024-05-14 19:23] LABS: Amphetamine/Metha Screen,Urine Negative ng/ml (<1000); Benzodiazepines Screen,Urine Negative ng/ml (<200)
[2024-05-14 19:30] LABS: Bacteria,Urine 4+ /lpf; RBC,Urine TNTC #/hpf (0-3); WBC,Urine TNTC #/hpf (0-3)
[2024-05-14 20:09] LABS: Cannabinoid Screen,Urine Negative ng/ml (<50)
[2024-05-14 20:10] LABS: Barbiturates Screen,Urine Negative ng/ml (<200); Cocaine Screen,Urine Negative ng/ml (<300)
[2024-05-14 20:11] LABS: Methadone Screen,Urine Negative ng/ml (<300)
[2024-05-14 20:12] LABS: Opiate Screen,Urine Negative ng/ml (<300); Phencyclidine Screen,Urine Negative ng/ml (<25)
[2024-05-14 21:35] VITALS: BP 128/78; PULSE 78; RESP 18; TEMP 36.8; O2SAT 99; BMI 29.7
--- NOTE | 2024-05-14 22:01 | PC.NURSE ---
Rhogam dose and route verified with OLAMIDE Mendoza. Unable to scan medication due to medication not directly prepared by pharmacy and pulled from overnight bin in [employer].
[2024-05-14] MEDS: RHO(D) IMMUNE GLOBULIN 1,500 UNIT (300MCG) SYRINGE 300 MCG IM (22:02)
[2024-05-16 09:08] LABS: Hepatitis B Surface Antigen Negative (Negative); Rapid Plasma Reagin Ab Titer Non Reactive titer (NonRea<1:1)
[2024-05-16 12:07] LABS: HIV Screen 4th Generation wRfx Non Reactive (Non Reactive)
[2024-05-18 03:53] LABS: Neisseria gonorrhoeae, NAA Negative (Negative)
[2024-05-18 06:11] LABS: Trichomonas Vaginalis, NAA Positive (Negative)
== END 2024-05-14 22:15 | disposition home or self-care (01) ==
LOC: OBOUT 18:08 → OB 18:09
PROVIDERS: PCP Pediatrics; Visit Provider Obstetrics & Gynecology
DX: O36.8120 Decreased fetal movements, second trimester, not applicable or unspecified (principal); Z3A.26 26 weeks gestation of pregnancy
CPT/HCPCS: 76811; 80307; 81001; 85025; 86593; 86762; 86850; 87086; 87340; 87491; 87591; 87661; G0463; J2790

== ENCOUNTER 2024-06-24 08:52 | Emergency (ER) | payer SELFPAY ==
[2024-06-24 08:53] VITALS: BP 130/79; PULSE 80; RESP 20; TEMP 36.9; O2SAT 97; BMI 29.0
--- NOTE | 2024-06-24 09:44 | PC.NURSE ---
DR MOLINA AT BEDSIDE
[2024-06-24] MEDS: ERYTHROMYCIN BASE 3.5 GM OINT...G. OP (09:55)
[2024-06-24 10:21] VITALS: BP 120/79; PULSE 80; RESP 20; TEMP 37; O2SAT 98
--- NOTE | 2024-06-24 14:44 | ED_ITS ---
Discharge Plan Disposition Patient Disposition: Home, Self-Care Condition: Good Prescriptions Prescriptions: No Action No Known Home Medications Referrals Follow up/Referrals: Provider,Referral, [Primary Care Provider] - See instructions Activity Restrictions/Add. Instructions Additional Instructions/Restrictions: You were evaluated in the emergency department today. Please administer eye ointment 3 times daily for 4 days or until symptoms resolved. Follow-up closely with primary care. Return to the emergency department for new or worsening symptoms Clinical Impressions Clinical Impression: Conjunctivitis Stand Alone Forms Stand Alone Forms: Work/School Release Instructions Patient Instructions: Conjunctivitis Print Language Print Language: Italian Discharge ED Provider: Patricia Howell General Adult HPI General Chief complaint: Eye Problems Stated complaint: redness and swelling to both eyes Time Seen by Provider: 06/24/24 09:31 Mode of Arrival: Ambulatory Source of Information: Patient Limitations: No Limitations Description of Symptoms (Recalled from ER Triage Doc. by RN): daughter has pink eye and mom woke up with red eyes and irritation this morning History of Present Illness HPI narrative: This patient is a 23-year-old female presenting to the emergency department for evaluation with concern for eye redness and irritation. She notes that her daughter has pinkeye. She denies any other concerns noted at this time. Related Data Home Medications ?Medication ?Instructions ?Recorded ?Confirmed No Known Home Medications 06/24/24 06/24/24 Allergies Allergy/AdvReac Type Severity Reaction Status Date / Time cinnamon Allergy Unknown Verified 06/22/24 14:59 [facility] Disclaimer: The information contained in this section may have been updated after the patient was seen, as this information can be updated by other users. 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 Anemia, Late care Surgical History History of delivery Family History Other Family history non-contributory Social History Smoking Status: Current every day smoker tobacco type: e-cigarettes alcohol intake: never substance use type: denies use current occupational status: unemployed Travel in the last 8 weeks: None Have you lived/traveled outside US in past 30 days?: No Contact w/someone who lives/traveled outside US past 30 days?: No Exposure to someone with infectious disease in past 14 days?: No Do you have a fever (greater than 100.4 F or 38 C)?: No Have you tested positive for COVID-19: No Exposed to someone with COVID-19 in past 14 days?: No Do you have a sore throat?: No Do you have a cough?: No Do you have any weakness?: No Do you have any diarrhea?: No Are you experiencing any unusual bleeding?: No Do you have any muscle aches/pain?: No Do you have any abdominal pain?: No Are you experiencing loss of taste or smell?: No Other 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 Have you received the Flu Vaccine for this season: No Have you received the Pneumonia Vaccine: No ROS Obtained: Yes All systems reviewed & no additional complaints except as documented Physical Exam General General appearance: alert and in no apparent distress Head Head exam: atraumatic and normocephalic Eye Eye exam: Present PERRL, EOMI and other (Mild left eye conjunctival irritation, no drainage or periorbital swelling) ENT ENT exam: Present normal exam, normal oropharynx, mucous membranes moist and normal external ear exam Neck Neck exam: Present normal inspection, full ROM and trachea midline; Absent tenderness Chest Chest inspection: Present normal inspection and symmetric chest wall rise; Absent tenderness Respiratory Respiratory exam: Present normal lung sounds bilaterally; Absent respiratory distress, wheezes, stridor or accessory muscle use Cardiovascular Cardiovascular exam: Present regular rate and normal rhythm Abdominal Exam Abdominal exam: Present soft; Absent distention, tenderness or guarding Extremities Exam Extremities exam: Present normal inspection, full ROM and normal capillary refill; Absent tenderness or edema Back Exam Back exam: Present normal inspection and full ROM; Absent tenderness Neurological Exam Neurological exam: Present alert, oriented X3, CN II-XII intact and normal gait; Absent motor sensory deficit Psychiatric Psychiatric exam: Present normal affect and normal mood Skin Skin exam: Present warm and dry Medical Decision Making Medical Records Medical records reviewed: Yes I reviewed the patient's medical records. Screening: Per USPSTF and CDC recommendations, given the prevalence of disease in our region, it is our hospital?s policy to screen for HIV and viral Hepatitis for all patients aged 18 and over and those with ongoing risk factors. Vadim Inquiry Pt receiving controlled substance: No Vital Signs: 06/24/24 08:53 06/24/24 10:21 Temperature 98.5 F 98.6 F Temperature Source Oral Pulse Rate 80 Pulse Rate [Left Radial] 80 Respiratory Rate 20 20 Blood Pressure 120/79 Blood Pressure [Right Arm] 130/79 Blood Pressure Mean [Right Arm] 96 02 Sat by Pulse Oximetry 97 Oxygen Delivery Method Room Air Room Air Lab Data Lab results reviewed: Yes I reviewed the patient's lab results. Orders (Tests/Meds): ED MEDICATIONS Discontinued Medications Generic Name Dose Route Start Last Admin Trade Name Dixon PRN Reason Stop Dose Admin Erythromycin 0.25 gm 06/24/24 09:46 06/24/24 09:55 Erythromycin Base 3.5 Gm Oint...G. OP 06/24/24 09:47 0.25 gm ONCE ONE Administration Medical Decision Narrative: In summary, this patient is a 23-year-old female presenting to the Emergency Department for evaluation of left eye redness and irritation. Daughter at home has similar symptoms. Differential diagnoses considered include but are not limited to viral conjunctivitis, bacterial conjunctivitis, preseptal cellulitis. Ruling out the most morbid conditions drove assessment. On exam, the patient is very well-appearing. She has mild conjunctival injection but no other acute concerns noted on exam. She has conjunctival injection, as well as her daughter. I feel that she likely has viral conjunctivitis, will treat with a topical antibiotic erythromycin to prevent secondary. This was provided to the patient here as well as instructions for use. I considered obtaining viral swab and basic lab evaluation, however based on reassuring history and exam I do not feel that this is indicated as it would not global climate change researcher. I feel the patient is appropriate for discharge home. Strict return precautions given as well as instructions for close follow-up with primary care. Critical Care Critical Care Time Critical Care Time: No
== END 2024-06-24 10:22 | disposition home or self-care (01) ==
PROVIDERS: Emergency Provider Emergency Medicine
DX: H10.33 Unspecified acute conjunctivitis, bilateral (principal); H57.89 Other specified disorders of eye and adnexa
CPT/HCPCS: 99283

== ENCOUNTER 2024-07-06 14:30 | Outpatient (CLI) | payer SELFPAY ==
[2024-07-06 14:40] VITALS: BP 122/77; PULSE 88; RESP 18; TEMP 37; O2SAT 97; BMI 29.8
[2024-07-06 16:46] LABS: Microscopic, Urine URINE MICROSCOPIC (MICROSCOPIC)
[2024-07-06 16:50] LABS: Bilirubin,Urine Negative (Negative); Blood, Urine Negative (Negative); Color,Urine YELLOW (Yellow); Glucose,Urine (UA) Negative (Negative); Ketones,Urine Negative (Negative); Leukocyte Esterase,Urine TRACE (Negative); Nitrate,Urine Negative (Negative); Protein,Urine Negative (Negative); Specific Gravity, Urine 1.015 (1.005-1.030); Urobilinogen,Urine 0.2 EU/dl (0.2)
[2024-07-06 16:51] LABS: Appearance,Urine Slightly Cloudy (Clear)
[2024-07-06 17:00] LABS: Amphetamine/Metha Screen,Urine Negative ng/ml (<1000)
[2024-07-06 17:01] LABS: Barbiturates Screen,Urine Negative ng/ml (<200); Benzodiazepines Screen,Urine Negative ng/ml (<200)
[2024-07-06 17:02] LABS: Cannabinoid Screen,Urine Negative ng/ml (<50)
[2024-07-06 17:03] LABS: Cocaine Screen,Urine Negative ng/ml (<300); Methadone Screen,Urine Negative ng/ml (<300)
[2024-07-06 17:04] LABS: Opiate Screen,Urine Negative ng/ml (<300)
[2024-07-06 17:05] LABS: Phencyclidine Screen,Urine Negative ng/ml (<25)
[2024-07-06 17:14] LABS: Bacteria,Urine 3+ /lpf; Mucus,Urine 1+ /lpf
== END 2024-07-06 17:00 | disposition home or self-care (01) ==
LOC: OBOUT 14:32 → OB 14:32
PROVIDERS: Visit Provider Obstetrics & Gynecology
DX: O47.03 False labor before 37 completed weeks of gestation, third trimester (principal); Z3A.38 38 weeks gestation of pregnancy
CPT/HCPCS: 80307; 81001; 87086; G0463

== ENCOUNTER 2024-07-08 04:26 | Inpatient (IN) | payer SELFPAY ==
[2024-07-08] VITALS (9 sets, daily range): BP systolic 103–124; BP diastolic 49–68; PULSE 72–116; RESP 12–18; TEMP 36.3–36.9; O2SAT 98–100; BMI 29.8; BMI 29.9
[2024-07-08] MEDS: LACTATED RINGERS 1000ML 2,000 ML 999 ML IV (04:35)
[2024-07-08 05:14] LABS: Basophils % 0.3 % (0.1-2.0); Eosinophils % 0.2 % (0.1-12.0); Hematocrit 29.1 % (37.0-47.0); Hemoglobin 9.8 g/dL (12.2-16.2); Lymphocytes # 1.1 K/mm3 (0.7-4.5); Lymphocytes % 17.8 % (10-50); Mean Corpuscular HGB Conc 33.7 g/dL (31.8-35.4); Mean Corpuscular Hemoglobin 28.1 pg (27.0-31.2); Mean Corpuscular Volume 83.4 fl (81-99); Mean Platelet Volume 10.7 fl (7.4-10.4); Monocytes # 0.6 K/mm3 (0.1-1.0); Monocytes % 10.6 % (1.7-9.3); Neutrophils # 4.2 K/mm3 (1.8-7.8); Neutrophils % 70.4 % (37.0-80.0); Platelet Count 186 K/mm3 (142-424); Red Blood Count 3.49 M/mm3 (4.20-5.40); Red Cell Distribution Width 14.7 % (11.5-17.5)
[2024-07-08 05:20] LABS: Alanine Aminotransferase 16 U/L (12-78); Albumin Level 3.4 g/dl (3.5-5.0); Albumin/Globulin Ratio 1.2 (1.1-1.8); Aspartate Amino Transferase 22 U/L (14-36); Blood Urea Nitrogen 4 mg/dl (7-17); Calcium 10.2 mg/dl (8.4-10.2); Carbon Dioxide 21 mmol/L (22.0-30.0); Chloride 107 mmol/L (98-107); Creatinine Clearance Estimated 234 mL/min (50-200); Estimated Glomerular Filt Rate 154 ml/min (>60); GFR (African American) 187 ML/MIN (>60); Globulin 2.8 g/dL (1.3-3.2); Glucose 93 mg/dl (74-100); Total Protein,Serum 6.2 g/dl (6.3-8.2)
[2024-07-08 05:21] LABS: Alkaline Phosphatase 117 U/L (38-126); Bilirubin,Total 0.4 mg/dl (0.2-1.3); Sodium 134 mmol/L (136-145)
[2024-07-08 05:27] LABS: Anion Gap 9.4 mEq/L (5-15); Potassium 3.4 mmoL/L (3.5-5.1)
--- NOTE | 2024-07-08 06:40 | EXP.ANES.CKL ---
[facility] Disclaimer: The information contained in this section may have been updated after the patient was seen, as this information can be updated by other users. 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 Anemia, Late care Surgical History History of delivery Family History Other Family history non-contributory Social History Smoking Status: Current every day smoker tobacco type: e-cigarettes alcohol intake: never substance use type: denies use current occupational status: unemployed Travel in the last 8 weeks: None Have you lived/traveled outside US in past 30 days?: No Contact w/someone who lives/traveled outside US past 30 days?: No Exposure to someone with infectious disease in past 14 days?: No Do you have a fever (greater than 100.4 F or 38 C)?: No Have you tested positive for COVID-19: No Exposed to someone with COVID-19 in past 14 days?: No Do you have a sore throat?: No Do you have a cough?: No Do you have any weakness?: No Do you have any diarrhea?: No Are you experiencing any unusual bleeding?: No Do you have any muscle aches/pain?: No Do you have any abdominal pain?: No Are you experiencing loss of taste or smell?: No [facility] Anesthesia Checklist Patient Identification Patient Identification: Arm Band and Family Structural Data Admitted From: Inpatient Planned Operative Procedure/s: Repeat . Consent for Planned Operative Procedure(s) Verified: Yes Verified Documents: Surgical Consent and History and Physical NPO Status Verified Time NPO: 00:00 Additional verifications Patient : Yes Anesthesia Reactions: No Hx Blood Transfusions: No Cephalosporin Allergy: No Previous Colonoscopy: No Airway Assessment Mallampati Score:: Class II C-Spine Mobility Assessed: Yes TMJ Mobility Assessed: Yes Dentition: Good Dentition Neurological Assessment Level of Consciousness: Awake, Alert, Appropriate and Follows Commands Hx Seizures: No Numbness or tingling in extremities: No Anesthesia Plan Anesthesia Risk discussed: Yes ASA Class: II Anesthesia Type: Spinal Preoperative Comments Pre-Operative Comments: History of Asthma. Allergic to Cinnamon/
[2024-07-08 07:08] LABS: Microscopic, Urine URINE MICROSCOPIC (MICROSCOPIC)
[2024-07-08] MEDS: CITRIC ACID/SODIUM CITRATE ORAL SOLN 30ML UDC 30 ML PO (07:17)
--- NOTE | 2024-07-08 07:26 | P.HP_ITS ---
History of Present Illness *Admission Date: 07/08/24 *Reason for visit:: Repeat *History of present illness: Sonia Trujillo is a 23-year-old at 39 weeks and 0 days gestation who presented to labor and delivery for a scheduled repeat delivery. Her has been late to care, previous delivery, and trichomoniasis infection. On presentation patient endorsed good movement and denies any leakage of fluid or vaginal bleeding. A negative, antibody pending, rubella immune, hepatitis B negative, hepatitis C negative, RPR negative, HIV negative 1 hour GTT: Not completed [facility] Disclaimer: The information contained in this section may have been updated after the patient was seen, as this information can be updated by other users. 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 Anemia, Late care Surgical History History of delivery Family History Other Family history non-contributory Social History Smoking Status: Current every day smoker tobacco type: e-cigarettes alcohol intake: never substance use type: denies use current occupational status: unemployed Travel in the last 8 weeks: None Have you lived/traveled outside US in past 30 days?: No Contact w/someone who lives/traveled outside US past 30 days?: No Exposure to someone with infectious disease in past 14 days?: No Do you have a fever (greater than 100.4 F or 38 C)?: No Have you tested positive for COVID-19: No Exposed to someone with COVID-19 in past 14 days?: No Do you have a sore throat?: No Do you have a cough?: No Do you have any weakness?: No Do you have any diarrhea?: No Are you experiencing any unusual bleeding?: No Do you have any muscle aches/pain?: No Do you have any abdominal pain?: No Are you experiencing loss of taste or smell?: No Other 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 Have you received the Flu Vaccine for this season: No Have you received the Pneumonia Vaccine: No Review of Systems Review of Systems Review of systems (narrative): Review of Systems Constitutional: Denies fever, chills, and sweats Eyes: Denies vision change/ pain Respiratory: Denies cough and shortness of breath Cardiovascular: Denies chest pain and lightheadedness Gastrointestinal: Denies abdominal pain with contractions. Denies nausea, vomiting. Genitourinary: Denies dysuria and incontinence Musculoskeletal: Denies shoulder pain and back pain Neurological: Denies change in speech or headaches Meds Home Medications and Allergies Home Medications ?Medication ?Instructions ?Recorded ?Confirmed ?Type No Known Home Medications 06/24/24 06/30/24 History New Prescriptions to Start Prescriptions: Allergies Allergy/AdvReac Type Severity Reaction Status Date / Time cinnamon Allergy Unknown Verified 06/30/24 13:29 Exam Data for Last 24 hours Vital signs and Labs for Last 24 Hours: Temp Pulse Resp BP Pulse Ox O2 Del Method 98.5 F 75 16 120/67 99 Room Air 07/08/24 04:35 07/08/24 04:35 07/08/24 04:35 07/08/24 04:35 07/08/24 04:35 07/08/24 04:35 Laboratory Results - last 24 hr 07/08/24 04:50: WBC 6.0, RBC 3.49 L, Hgb 9.8 L, Hct 29.1 L, MCV 83.4, MCH 28.1, MCHC 33.7, RDW 14.7, Plt Count 186, MPV 10.7 H, Neut % (Auto) 70.4, Lymph % (Auto) 17.8, Loving % (Auto) 10.6 H, Eos % (Auto) 0.2, Baso % (Auto) 0.3, Neut # (Auto) 4.2, Lymph # (Auto) 1.1, Loving # (Auto) 0.6, Eos # (Auto) 0.0, Baso # (Aut o) 0.0, Sodium 134 L, Potassium 3.4 L, Chloride 107, Carbon Dioxide 21 L, Anion Gap 9.4, BUN 4 L, Creatinine 0.50 L, Estimated Creat Clear 234, Estimated GFR 154, Est GFR ( Amer) 187, Glucose 93, Calcium 10.2, Total Bilirubin 0.4, AST 22, ALT 16, Alkaline Phosphatase 117, Total Protein 6.2 L, Albumin 3.4 L, Globulin 2.8, Albumin/Globulin Ratio 1.2 I & O for Last 24 hours: Intake & Output 07/05/24 07/06/24 07/07/24 07/08/24 23:59 23:59 23:59 23:59 Weight 185 lb Narrative: General: patient is alert oriented in no acute distress and responds appropriately to questions. HEENT: NCAT, EOMI, moist mucous membranes, neck supple with full ROM Cardiovascular: RRR +S1/S2, no murmurs or rubs Pulmonary: Clear to auscultation bilaterally, nonlabored breathing, symmetric chest rise Abdominal: Gravid abdomen appropriate for gestation. No guarding, rebound, or tenderness noted. Extremities: trace edema, no tenderness or cyanosis noted Skin: Normal turgor, intact, warm. Negative for erythema, pallor, petechia, or lesions Neurologic: Negative for sensory or motor deficit Psychiatric: Normal affect, normal thought process, good judgment and insight, no depression or anxious mood appreciated. *Routine HEENT Exam Head: Present normocephalic and atraumatic Eye: Present EOMI, PERRL and normal accommodation; Absent conjunctival icterus, scleral injection, nystagmus or exophthalmos ENT: Present mucous membranes moist *Routine Respiratory Exam Respiratory: Present CTA bilaterally, normal respiratory effort, able to speak in complete sentences and symmetric chest movement; Absent accessory muscle use, decreased breath sounds, rales, respiratory distress, wheezes, distant breath sounds or diminished air movement *Routine Cardiovascular Exam Cardiovascular: Present RRR, Normal S1 and Normal S2; Absent murmur or gallop *Routine Abdominal Exam Abdominal: Present soft and normoactive bowel sounds; Absent tenderness, distended, rebound or guarding *Routine Rectal Exam Rectal:: deferred *Routine Genitalia Exam Genitalia:: normal female Assessment and Plan *Assessment and plan (1) Rh negative status during : Status: Acute Qualifiers: Trimester: third trimester Qualified Code(s): O26.893 - Other specified related conditions, third trimester; Z67.91 - Unspecified blood type, Rh negative Category: Medical Code(s): O26.899 - Other specified related conditions, unspecified trimester; Z67.91 - Unspecified blood type, Rh negative (2) delivery delivered: Status: Acute Category: Medical Code(s): O82 - Encounter for delivery without indication (3) Trichomoniasis of vagina: Status: Acute Category: Medical Code(s): A59.01 - Trichomonal vulvovaginitis (4) History of delivery: Status: Acute Category: Surgical Code(s): Z98.891 - History of uterine scar from previous surgery (5) Late care: Status: Acute Category: Medical Code(s): O09.30 - Supervision of with insufficient care, unspecified trimester (6) Anemia affecting second : Status: Acute Category: Medical Code(s): O99.019 - Anemia complicating , unspecified trimester Plan - Monitor vitals - Admit to L&D for scheduled delivery - External FHR and TOCO monitor - Blood type: A- - Hemoglobin: 9.8, Plt: 186 - Plan for spinal anesthesia - Anticipate delivery of male : Landry #Anemia -Normocytic anemia present on admission. Continue following. This has been longstanding for greater than 1 year -EBL at was 200 Reviewed the risks benefits and alternatives to Repeat delivery. Patient continued to request delivery and not a trial of labor would not be an option after 2 previous deliveries. Discussed the risk of bleeding, infection injury to the surrounding structures. Patient consented to blood transfusion to medically necessary. Reviewed the rare risk of hysterectomy if bleeding is unable to be controlled. Discussed risk of infect ion, the patient has no allergies and will receive 2 g of Ancef preoperatively. Reviewed the risk of injury to surrounding structures including the bowel, bladder, reproductive organs, and neurovascular bundles. Patient voiced understanding. Discussed the increased risk with prior surgery and scarring. Patient and significant other voiced understanding desire to proceed
[2024-07-08] MEDS: CEFAZOLIN SODIUM 2 GM in 0.9 % SODIUM CHLORIDE 100 ML IV (07:30)
[2024-07-08 08:20] LABS: Appearance,Urine CLEAR (Clear); Bilirubin,Urine Negative (Negative); Blood, Urine Negative (Negative); Color,Urine YELLOW (Yellow); Glucose,Urine (UA) Negative (Negative); Ketones,Urine Negative (Negative); Leukocyte Esterase,Urine TRACE (Negative); Nitrate,Urine Negative (Negative); PH,Urine 7.5 (5.0-8.5); Protein,Urine Negative (Negative); Urobilinogen,Urine 0.2 EU/dl (0.2)
--- NOTE | 2024-07-08 08:36 | EXP.OP.NOTE ---
Date of procedure: 07/08/24 Pre-op Diagnosis:: 1. 39 weeks 0 days gestation, [place] 2. Previous delivery, desires repeat 3. Rh negative Post-op Diagnosis:: 1. 39 weeks 0 days gestation, [place] 2. Previous delivery, desires repeat 3. Rh negative Procedure performed:: Repeat Delivery Surgeon:: Montserrat Peng DO Medical Records Coordinator(s):: Tadeo Farfan MD GROUND WOOD SUPERVISOR:: Dayne Edgar Anesthesia: spinal Estimated blood loss (mL): 200 Operative findings:: 1. Live viable male infant: Landry. Weight: 7pounds 10ounces. Apgars 7 and 9 at 1 and 5 minutes respectively 2. Normal-appearing fallopian tubes and ovaries bilaterally Operative note:: Medications: 2 g of Ancef Summary: Procedure explained in its entirety. The patient was counseled on the risks and benefits of section including bleeding, vascular injury, infection, and injury to the surrounding structures. Hemorrhage requiring life saving blood transfusion resulting in blood born viral infection or allergic reaction was explained and the patient consented to blood transfusion. Possible need for further operative measures prolonging recovery time and hospitalization reviewed to include hysterectomy. Procedure explained in its entirety and patient had no further questions. Consented to procedure. The patient was taken back to the operating room where adequate spinal anesthesia was obtained. Pneumatic compression stockings applied to lower extremities. Ancef 2g was given for infection prophylaxis. She was placed in the dorsal supine position Urinary catheter was placed and found to be draining clear urine. The patient was prepped and draped in sterile fashion. Anesthesia was tested and and found to be adequate. A Pfannenstiel skin incision was made with the scalpel. Subcutaneous bleeding vessels were cauterized with the bovie. The incision was taken down to the fascia with the bovie. The fascia was knicked in the midline and sharply extended laterally. The superior aspect of the fascia was grasped with Christo clamps and the rectus muscle was taken down with the Bovie. The rectus muscle was sharply dissected from the midline with May[place]ie. This process was repeated inferiorly. The rectus muscles were in the midline, peritoneum was identified and entered bluntly. Antolin O retractor was placed and the bladder was noted to be out of the operative field. A bladder flap was created with Metzenbaum scissors and Singaporean pickups. The lower uterine segment was easily identified, sharply incised, and entered bluntly with the surgeon's index finger. Incision was then extended in a superior and inferior fashion by blunt separation. Membranes were ruptured revealing clear fluid. The fetus was in cephalic presentation. The head was carefully elevated out of the pelvis. Fundal pressure was applied when head was brought into incision. The infants head was delivered without difficulty. The shoulder and body followed without complication. Delivery occurred at 0756. The mouth and nose were suctioned with a bulb. The umbilical cord was clamped and cut. Infant was taken to warmer for evaluation by the base manager. Cord blood was collected. The placenta was delivered via fundal massage. IV Pitocin was initiated. Inside of the uterus was gently cleared of blood and clots with lap sponge. The hysterotomy was closed with 0 Vicryl in a running locked fashion. The lower uterine segment was visualized and noted to be hemostatic. The ovaries and tubes were found to be normal. The posterior aspect of the uterus was cleared of blood clot with a damp lap sponge. The gutters were inspected bilaterally and cleared of blood and clots with lap sponges. The uterine incision was reinspected and hemostasis noted. Antolin O retractor was removed. The peritoneum was reapproximated using a 2-0 Monocryl in a nonlocked running fashion. The rectus muscles were reapproximated with horizontal mattress sutures. The fascia was closed in a running nonlocked fashion using 0 PDS. Fascia was noted as not having gaps or defects. The subcutaneous fat was closed with 2-0 Monocryl interrupted sutures x3. Skin was closed with the INSORB suture in a subcuticular fashion. Patient tolerated the procedure well and all counts were correct x3, per nursing. Patient will receive tap blocks and then be transported to the OB PACU for recovery and infant bonding. Condition: stable Disposition: PACU Specimens:: Viable male infant Placenta Complications:: None
--- NOTE | 2024-07-08 08:40 | P.PNANES_ITS ---
[facility] Anesthesia Record Part I Anesthesia Record I Intake, IV Amount: 1,500 Hydration: Adequate Estimated blood loss (mL): 400 Urine output (mL): 250 Blood Pressure: 110/53 SaO2: 98 Pulse Rate: 116 Airway Patency: Patent Respiratory Rate: 12 Temperature: 98 F Patient is:: Awake and Stable Stable to PACU at:: 08:35
[2024-07-08 08:51] LABS: Red Blood Cell Casts,Urine Occasional #/lpf (0)
[2024-07-08] MEDS: OXYTOCIN/RINGERS LACTATE 30 UNITS/500 ML BAG 40 UNITS IV (09:16)
[2024-07-08] MEDS: LACTATED RINGERS 1000ML 1,000 ML 125 ML IV (09:16)
[2024-07-08] MEDS: ACETAMINOPHEN 500MG TAB 1000 MG PO ×3 (09:17→21:57)
[2024-07-08] MEDS: KETOROLAC 30MG/ML VIAL 30 MG IV ×3 (09:17→21:57)
[2024-07-08 09:51] LABS: Microscopic,Cath URINE MICROSCOPIC (MICROSCOPIC)
[2024-07-08] MEDS: diphenhydrAMINE 25MG CAPSULE 25 MG PO (09:53)
[2024-07-08 09:54] LABS: Appearance,Urine/Cath CLEAR (Clear); Bilirubin,Cath Negative (Negative); Blood, Urine/Cath Negative (Negative); Color,Urine/Cath YELLOW (Yellow); Glucose,Urine/Cath (UA) Negative (Negative); Ketones,Urine/Cath Negative (Negative); Leukocyte Esterase,Cath Negative (Negative); Nitrate,Cath Negative (Negative); PH,Urine/Cath 7.5 (5.0-8.5); Protein,Urine/Cath Negative (Negative); Specific Gravity, Urine/Cath 1.015 (1.005-1.030); Urobilinogen,Cath 0.2 EU/dl (0.2)
[2024-07-08 10:05] LABS: Bacteria,Urine/Cath TRACE /lpf; Squamous Epithelial Ur./Cath Occasional #/hpf (0-5); WBC,Urine/Cath Occasional #/hpf (0-3)
[2024-07-08] MEDS: METHYLERGONOVINE MALEATE 0.2MG/ML INJ 0.2 MG IM (11:21)
[2024-07-08 11:56] LABS: Hematocrit 26.2 % (37.0-47.0); Hemoglobin 8.7 g/dL (12.2-16.2)
--- NOTE | 2024-07-08 12:33 | P.PNANES_ITS ---
[facility] Anesthesia Record Part II Anesthesia Record Part II Discharge Time: 09:05 Destination: Obstetric PACU nurse assessment reviewed?: Yes Patient Condition:: Good Anesthesia Complications:: None Swallowing reflex intact?: Yes Airway Patency: Patent Cyanosis?: No Blood Pressure: 110/58 SaO2: 100 Respiratory Rate: 16 Pulse Rate: 72 Temperature: 98 F Mental Status: Alert & Oriented Pain level:: 0 Nausea and/or vomitting:: None Intake, IV Amount: 0 Hydration: Adequate
[2024-07-08] MEDS: OXYCODONE 5MG IMMEDIATE RELEASE TABLET 5 MG PO ×2 (12:53→14:24)
[2024-07-08] MEDS: PRENATAL MULTIVITAMIN W/IRON 1 EACH PO (16:04)
[2024-07-08] MEDS: SENNA 8.6MG TABLET 8.6 MG PO (19:19)
[2024-07-08] MEDS: OXYCODONE 5MG IMMEDIATE RELEASE TABLET 10 MG PO (19:19)
[2024-07-09] MEDS: OXYCODONE 5MG IMMEDIATE RELEASE TABLET 10 MG PO ×3 (02:22→18:47)
[2024-07-09] MEDS: SIMETHICONE 80MG CHEWABLE TABLET 160 MG PO ×2 (02:30→09:04)
[2024-07-09] MEDS: KETOROLAC 30MG/ML VIAL 30 MG IV (06:19)
[2024-07-09 07:01] LABS: Basophils % 0.2 % (0.1-2.0); Eosinophils % 0.2 % (0.1-12.0); Hematocrit 23.8 % (37.0-47.0); Lymphocytes # 0.6 K/mm3 (0.7-4.5); Lymphocytes % 9.7 % (10-50); Mean Corpuscular HGB Conc 32.8 g/dL (31.8-35.4); Mean Corpuscular Hemoglobin 28.1 pg (27.0-31.2); Mean Corpuscular Volume 85.6 fl (81-99); Mean Platelet Volume 10.3 fl (7.4-10.4); Monocytes # 0.4 K/mm3 (0.1-1.0); Neutrophils # 5.2 K/mm3 (1.8-7.8); Neutrophils % 82.3 % (37.0-80.0); Platelet Count 133 K/mm3 (142-424); Red Blood Count 2.78 M/mm3 (4.20-5.40); Red Cell Distribution Width 14.9 % (11.5-17.5); White Blood Count 6.3 K/mm3 (4.8-10.8)
[2024-07-09 07:24] LABS: Hemoglobin 7.8 g/dL (12.2-16.2)
--- NOTE | 2024-07-09 08:24 | SW/DCPLANNER ---
I received a referral on this patient regarding limited and late care and questionable custody of first child. Patient urine drug screens on 05/14/24 and 07/06/24 were both negative. Infant urine drug screen was also negative at admission. male (Rocky Trujillo) was born on [birth year]. Per patient 's father is not involved. Patient will reside at [address] [place] [address] w/ infant and other child ([facility]). Per patient no previous Social Service involvement w/ other child. Patient's contact number is [phone]. Patient is currently established w/ WIC. Patient stated that she has the following items at home: crib, car seat, clothing, diapers and will be bottle/breast feeding. PED MD will be Dr Bacon and patient confirmed she will have transportation to all follow up appointments. Per OB nursing staff patient has been appropriate w/ and pending no setbacks patient/ will discharge home tomorrow. Patient stated that limited/late care was due to insurance issues. Luci chen/ [facility] is involved and working w/ patient regarding issues w/ her Medicaid. Patient did not have any further questions/needs at this time.
[2024-07-09] MEDS: ACETAMINOPHEN 500MG TAB 1000 MG PO ×3 (09:03→20:50)
[2024-07-09] MEDS: IBUPROFEN 400 MG TABLET 800 MG PO ×2 (09:04→18:46)
[2024-07-09] MEDS: SENNA 8.6MG TABLET 8.6 MG PO ×2 (09:04→20:51)
[2024-07-09] MEDS: IRON SUCROSE COMPLEX 200 MG in 0.9 % SODIUM CHLORIDE 100 ML 220 MG IV (12:48)
[2024-07-09 15:20] LABS: RPR W/RFX Titers Nonreactive (Nonreactive)
[2024-07-09] MEDS: PRENATAL MULTIVITAMIN W/IRON 1 EACH PO (18:47)
--- NOTE | 2024-07-09 21:29 | P.PN_ITS ---
Subjective *Date: 07/09/24 *Time: 21:29 Interval history: Sonia is a G1, P1 day #2 following a RLTCS at 39 weeks and 0 days gestation. Routine delivery with a QBL of 200 intraop. She has a hemorrhage. She is doing well, sitting up in bed, and visiting with family this morning. -Reports pain is well-controlled -Reports she is tolerating p.o. without nausea or vomiting. -Reports her lochia is scant. -undecided on contraception -Ambulating, voiding difficulty or dysuria. Denies chest pain shortness of breath or pain in her legs. No further complaints at this time. Exam Data for Last 24 hours Vital signs and Labs for Last 24 Hours: Temp Pulse Resp BP Pulse Ox O2 Del Method 97.4 F L 77 18 124/68 100 Room Air 07/08/24 16:02 07/08/24 16:02 07/08/24 16:02 07/08/24 16:02 07/08/24 16:02 07/08/24 16:02 Laboratory Results - last 24 hr 07/08/24 04:50: RPR w/Rflx to Titer Nonreactive, Blood Type A Negative, Antibody Screen Positive, Antibody Identification See Comments, Crossmatch (AHG) See Detail 07/09/24 05:32: WBC 6.3, RBC 2.78 L, Hgb 7.8 L D, Hct 23.8 L, MCV 85.6, MCH 28.1, MCHC 32.8, RDW 14.9, Plt Count 133 L D, MPV 10.3, Neut % (Auto) 82.3 H, Lymph % (Auto) 9.7 L, [place] % (Auto) 7.0, Eos % (Auto) 0.2, Baso % (Auto) 0.2, Neut # (Auto) 5.2, Lymph # (Auto) 0.6 L, [place] # (Auto) 0.4, Eos # (Auto) 0.0, Baso # (Auto) 0.0, Screen Negative, Baby's Rh Status Positive I & O for Last 24 hours: Intake & Output 07/06/24 07/07/24 07/08/24 07/09/24 23:59 23:59 23:59 23:59 Intake Total 1500 / 1500 Balance 1500 / 1500 Weight 185 lb Narrative: General: patient is alert oriented in no acute distress and responds appropriately to questions. Appears to be in minimal pain. Sitting up in the chair and doing well HEENT: NCAT, EOMI, moist mucous membranes, neck supple with full ROM Cardiovascular: RRR +S1/S2, no murmurs or rubs Pulmonary: Clear to auscultation bilaterally, nonlabored breathing, symmetric chest rise Abdominal: Fundus at the umbilicus, firm, and tenderness appropriate for the period. Extremities: trace edema, no tenderness or cyanosis noted Skin: Normal turgor, intact, warm. Negative for erythema, pallor, petechia, or lesions Neurologic: Negative for sensory or motor deficit Psychiatric: Normal affect, normal thought process, good judgment and insight, no depression or anxious mood appreciated. Assessment and Plan *Assessment and plan (1) Rh negative status during : Status: Acute Qualifiers: Trimester: third trimester Qualified Code(s): O26.893 - Other specified related conditions, third trimester; Z67.91 - Unspecified blood type, Rh negative Category: Medical Code(s): O26.899 - Other specified related conditions, unspecified trimester; Z67.91 - Unspecified blood type, Rh negative (2) delivery delivered: Status: Acute Category: Medical Code(s): O82 - Encounter for delivery without indication (3) Trichomoniasis of vagina: Status: Acute Category: Medical Code(s): A59.01 - Trichomonal vulvovaginitis (4) History of delivery: Status: Acute Category: Surgical Code(s): Z98.891 - History of uterine scar from previous surgery (5) Late care: Status: Acute Category: Medical Code(s): O09.30 - Supervision of with insufficient care, unspecified trimester (6) Anemia affecting second : Status: Acute Category: Medical Code(s): O99.019 - Anemia complicating , unspecified trimester (7) hemorrhage: Status: Acute Category: Medical Code(s): O72.1 - Other immediate hemorrhage Plan Stable. POD#1 s/p RLTCS -Doing well. VSS. Serial lochia and fundal checks. -Hemoglobin: 9.8--> 7.8 -A-/antibody positive -male -Contraception: undecided -Follow-up 2 weeks for routine visit -Dispo: home in 1-3 days pending mother/ status #Anemia -Normocytic anemia present on admission. Continue following. This has been longstanding for greater than 1 year -EBL at was 200 -patient had a hemorrhage -Will receive IV Iron POD#1
[2024-07-10] MEDS: IBUPROFEN 400 MG TABLET 800 MG PO (04:12)
[2024-07-10] MEDS: ACETAMINOPHEN 500MG TAB 1000 MG PO ×2 (04:12→11:05)
[2024-07-10] MEDS: RHO(D) IMMUNE GLOBULIN 1,500 UNIT (300MCG) SYRINGE 300 MCG IM (09:02)
[2024-07-10] MEDS: SENNA 8.6MG TABLET 8.6 MG PO (11:04)
[2024-07-10] MEDS: OXYCODONE 5MG IMMEDIATE RELEASE TABLET 10 MG PO (11:05)
--- NOTE | 2024-07-10 11:51 | P.DS_ITS ---
General Admission date:: 07/08/24 Discharge date: 07/10/24 HPI HPI HPI: POD # 2 s/p RLTCS with hemorrhage Feeling well. Pain controlled. Formula feeding. Lochia is very light. Voiding without difficulty and passing flatus. Tolerating regular diet. Denies fever/chills, chest pain and shortness of breath. No headaches, vision changes, lightheadedness/dizziness. She admits to bilateral lower extremity swelling. No calf pain. Ambulating well ad oh. Hospital Course Hospital Course Hospital Course: Sonia Trujillo is a 23-year-old at 39 weeks and 0 days gestation who presented to labor and delivery for a scheduled repeat delivery. Her has been complicated by late to care, previous delivery, and trichomoniasis infection. On presentation patient endorsed good movement and denies any leakage of fluid or vaginal bleeding. She underwent repeat on 07/08/24. She delivered a live male baby, Landry. Weight: 7pounds 10ounces. Apgars 7 and 9 at 1 and 5 minutes respectively. EBL 200 mL. However she had hemorrhage once she returne d to L&D from the OR. She received Venofer 200 mg IV x 1 dose. Bleeding improved with fundal massage and close monitoring. She reports very light, almost no bleeding today. She did well /postoperatively. Pain controlled. Formula feeding. Very light lochia. Voiding without difficulty and passing flatus. Tolerating regular diet. Denies fever/chills, chest pain and shortness of breath. No headaches, dizziness/lightheadedness or vision changes. Vital signs stable, afebrile. Heart regular rate and rhythm. Lungs clear to auscultation. Abdomen soft, nontender. She has +1 bilateral lower extremity edema. No calf tenderness. Ambulating well ad oh. Normal hospital course. She was discharged to home on POD # 2 with instructions to follow-up in the office in 2 weeks or sooner if needed. Exam Data for Last 24 hours Vital signs and Labs for Last 24 Hours: Temp Pulse Resp BP Pulse Ox O2 Del Method 97.4 F L 77 18 124/68 100 Room Air 07/08/24 16:02 07/08/24 16:02 07/08/24 16:07/08/24 16:07/08/24 16:02 07/08/24 16:02 Laboratory Results - last 24 hr 07/08/24 04:50: RPR w/Rflx to Titer Nonreactive I & O for Last 24 hours: Intake & Output 07/07/24 07/08/24 07/09/24 07/10/24 23:59 23:59 23:59 23:59 Intake Total 1500 / 1500 Balance 1500 / 1500 Weight 185 lb Constitutional Constitutional: no acute distress and cooperative *Routine HEENT Exam Head: Present normocephalic and atraumatic Eye: Absent conjunctivae pink ENT: Present mucous membranes moist *Routine Neck Exam Neck: Present full ROM *Routine Respiratory Exam Respiratory: Present CTA bilaterally and normal respiratory effort *Routine Cardiovascular Exam Cardiovascular: Present RRR *Routine Abdominal Exam Abdominal: Present soft and normoactive bowel sounds; Absent tenderness or distended Comments: Pfannenstiel incision clean/dry/intact with steri strips in place *Routine Rectal Exam Patient deferred: visual exam *Routine Exam Patient deferred: external exam *Routine Extremities Exam Extremities: Present edema (+1 bilateral lower extremity edema) and full ROM; Absent calf tenderness *Routine Neurological Exam Neurological: Present alert, moving all extremities and normal speech Routine Psychiatric Exam Psychiatric: Present normal affect and cooperative Results Data Completed and Pending Labs on day of discharge: Labs from last 24 hours 07/08/24 04:50 RPR w/Rflx to Titer Nonreactive DS: Diagnosis Discharge Diagnosis (1) Rh negative status during : Status: Acute Code(s): O26.899 - Other specified related conditions, unspecified trimester; Z67.91 - Unspecified blood type, Rh negative Qualifiers: Trimester: third trimester Qualified Code(s): O26.893 - Other specified related conditions, third trimester; Z67.91 - Unspecified blood type, Rh negative (2) delivery delivered: Status: Acute Code(s): O82 - Encounter for delivery without indication (3) Trichomoniasis of vagina: Status: Acute Code(s): A59.01 - Trichomonal vulvovaginitis (4) History of delivery: Status: Acute Code(s): Z98.891 - History of uterine scar from previous surgery (5) Late care: Status: Acute Code(s): O09.30 - Supervision of with insufficient care, unspecified trimester (6) Anemia affecting second : Status: Acute Code(s): O99.019 - Anemia complicating , unspecified trimester (7) hemorrhage: Status: Acute Code(s): O72.1 - Other immediate hemorrhage Qualifiers: hemorrhage type: unspecified Qualified Code(s): O72.1 - Other immediate hemorrhage Meds Home Medications and Allergies Home Medications ?Medication ?Instructions ?Recorded ?Confirmed ?Type ibuprofen 400 mg tablet 800 mg (2 x 400 mg) PO Q8H #40 tabs 07/10/24 Rx oxycodone 5 mg tablet 5 mg PO Q4HP PRN Moderate Pain 07/10/24 Rx (4-6) #20 tabs New Prescriptions to Start Prescriptions: ibuprofen Nupur Kwoknifer oxycodone Nupur Kwoknifer Allergies Allergy/AdvReac Type Severity Reaction Status Date / Time cinnamon Allergy Unknown Verified 06/30/24 13:29 Discharge Plan Disposition Patient Disposition: Home, Self-Care Condition: Good Discharge Order Discharge Orders: Discharge Order (Routine); Ordered 07/10/24 Ordered By: Chaya Kwok Follow up Plan Follow up with: Montserrat Peng DO [Staff Physician] - 07/22/24 1:15 pm Prescriptions/Medication Reconciliation: New ibuprofen 400 mg Tablet 800 mg PO Q8H Qty: 40 0RF oxycodone 5 mg Tablet 5 mg PO Q4HP PRN (Reason: Moderate Pain (4-6)) Qty: 20 0RF Problem Reconciliation Problems Reviewed?: Yes Patient Discharge Instructions ACTIVITY: Limited activity DIET: continue same diet and regular diet Additional Instructions: Discharge: 1. Take 800 mg Ibuprofen every 8 hours as needed for pain. You can also take 500-1000 mg of Tylenol in between doses, every 6-8 hours. If pain persists you can take Oxycodone 5 mg, 1 tablet every 4-6 hours or more as needed. 2. Nothing in the vagina for 6 weeks - no intercourse, douching or tampons. No tub baths/hot tubs or swimming pools - Drink plenty of fluids. - No strenuous activity or driving until released by your doctor. - Don't lift anything heavier than your . 3. Reasons to return to L&D or call On-Call doctor - fever (greater than 100.4) - heavy vaginal bleeding (soaking through 1 pad in less than 2 hours) - vaginal discharge (malodorous and/or purulent) - severe headaches not resolved by medication or rest and leg tenderness/edema 4. depression/blues - Normal to feel anxious/overwhelmed for first 2 weeks - Talk to your doctor if: severe anxiety, trouble bonding with baby, withdrawing from other family members, thoughts of harming yourself or others Patient Instructions: Depression, Hemorrhage, DI for , DI for Pre-eclampsia, H Post Discharge Instructions Print Language: Nepali Providers Primary Care Provider: Provider,Referral Admit Provider: Montserrat Peng Attending Provider: Montserrat Peng
== END 2024-07-10 14:40 | disposition home or self-care (01) | DRG 787 ==
PROVIDERS: Admitting Provider Obstetrics & Gynecology; Visit Provider Obstetrics & Gynecology
PROC: 10D00Z1 Extraction of Products of Conception, Low, Open Approach (ICD-10-PCS; CPT 59514; principal; 2024-07-08 07:30)
DX: O34.211 Maternal care for low transverse scar from previous cesarean delivery (principal); O72.1 Other immediate postpartum hemorrhage; A59.01 Trichomonal vulvovaginitis; F17.290 Nicotine dependence, other tobacco product, uncomplicated; O99.334 Smoking (tobacco) complicating childbirth; D64.9 Anemia, unspecified; O26.893 Other specified pregnancy related conditions, third trimester; Z67.11 Type A blood, Rh negative; N85.8 Other specified noninflammatory disorders of uterus; Z3A.39 39 weeks gestation of pregnancy; Z37.0 Single live birth
CPT/HCPCS: 36415; 59025; 80053; 81001; 85014; 85018; 85025; 85461; 86592; 86850; 86870; 94761; 96374; G0283; J1756; J1885; J2250; J2790; J3010; J7120

== ENCOUNTER 2024-08-20 13:23 | Emergency (ER) | payer SELFPAY ==
--- NOTE | 2024-08-20 13:33 | HMH.EDGENADL ---
Discharge Plan Disposition Patient Disposition: Home, Self-Care Prescriptions Prescriptions: New nitrofurantoin monohyd/m-cryst [Macrobid] 100 mg capsule 100 mg PO BID 5 Days Qty: 10 0RF Rx Instructions: must administer with a meal/food Referrals Follow up/Referrals: Provider,Referral, [Primary Care Provider] - See instructions Activity Restrictions/Add. Instructions Additional Instructions/Restrictions: At this time it was felt you are safe to be discharged home. If new or worsening symptoms please do not hesitate to return the emergency department. Please take antibiotics as prescribed. Clinical Impressions Clinical Impression: UTI (urinary tract infection), Encounter for drug screening Print Language Print Language: [place] Discharge ED Provider: Bacilio Irwin General Adult HPI General Chief complaint: Urogenital-Female Stated complaint: STD and drug screening Time Seen by Provider: 08/20/24 13:25 History of Present Illness HPI narrative: Patient is a 24-year-old female no pertinent past medical history presents emergency department for a drug test and STD test. She is currently on her period. No abdominal pain no acute complaints at this time. Related Data Previous Rx's ?Medication ?Instructions ?Recorded nitrofurantoin 100 mg PO BID 5 days #10 caps 08/20/24 monohydrate/macrocrystals 100 mg capsule (Macrobid) Allergies Allergy/AdvReac Type Severity Reaction Status Date / Time cinnamon Allergy Unknown Verified 07/22/24 13:45 [facility] Disclaimer: The information contained in this section may have been updated after the patient was seen, as this information can be updated by other users. 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 Trichomoniasis of vagina Anemia, Late care Surgical History History of delivery Family History Other Family history non-contributory Social History Smoking Status: Current every day smoker tobacco type: e-cigarettes alcohol intake: never substance use type: denies use current occupational status: unemployed Travel in the last 8 weeks: None Have you lived/traveled outside [place] in past 30 days?: No Contact w/someone who lives/traveled outside US past 30 days?: No Exposure to someone with infectious disease in past 14 days?: No Do you have a fever (greater than 100.4 F or 38 C)?: No Have you tested positive for COVID-19: No Exposed to someone with COVID-19 in past 14 days?: No Do you have a sore throat?: No Do you have a cough?: No Do you have any weakness?: No Do you have any diarrhea?: No Are you experiencing any unusual bleeding?: No Do you have any muscle aches/pain?: No Do you have any abdominal pain?: No Are you experiencing loss of taste or smell?: No Other 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 Have you received the Flu Vaccine for this season: No Have you received the Pneumonia Vaccine: No ROS Obtained: Yes Systems reviewed as appropriate & no additional complaints except as documented Physical Exam General General appearance: alert and in no apparent distress Head Head exam: atraumatic and normocephalic Eye Eye exam: Present PERRL and EOMI ENT ENT exam: Present mucous membranes moist Neck Neck exam: Present normal inspection Chest Chest inspection: Present normal inspection and symmetric chest wall rise Respiratory Respiratory exam: Absent respiratory distress Cardiovascular Cardiovascular exam: Present regular rate and normal rhythm Abdominal Exam Abdominal exam: Present soft; Absent tenderness or guarding Extremities Exam Extremities exam: Present normal inspection Neurological Exam Neurological exam: Present alert Psychiatric Psychiatric exam: Present normal affect Skin Skin exam: Present warm and dry Medical Decision Making Medical Records Screening: Per USPSTF and CDC recommendations, given the prevalence of disease in our region, it is our hospital?s policy to screen for HIV and viral Hepatitis for all patients aged 18 and over and those with ongoing risk factors. Vadim Inquiry Pt receiving controlled substance: No Vital Signs: 08/20/24 13:36 Temperature 98.1 F Temperature Source Oral Pulse Rate [Left Radial] 84 Respiratory Rate 17 Blood Pressure [Right Arm] 133/80 Blood Pressure Mean [Right Arm] 97 Blood Pressure Source [Right Arm] Automatic Cuff Blood Pressure Position [Right Arm] Sitting 02 Sat by Pulse Oximetry 100 Oxygen Delivery Method Room Air Lab Data Lab Results 08/20/24 14:05: Urine Color Yellow, Urine Appearance Clear, Urine pH 6.5, Ur Specific [place] <= 1.005, Urine Protein Negative, Urine Glucose (UA) Negative, Urine Ketones Negative, Urine Blood 3+ A, Urine Nitrate Negative, Urine Bilirubin Negative, Urine Urobilinogen 0.2, Ur Leukocyte Esterase 3+ A, Urine RBC None, Urine WBC 50-100, Ur Squamous Epith Cells Occasional, Urine Bacteria 4+, Urine HCG, Qual Negative, Urine Opiates Screen Negative, Urine Methadone Screen Negative, Ur Barbituates Screen Negative, Ur Phencyclidine Scrn Negative, Ur Amphetamines Screen Negative, U Benzodiazepines Scrn Negative, Urine Cocaine Screen Negative, U Marijuana (THC) Screen Negative Orders (Tests/Meds): ORDERS Category Date Time Status Drug Screen,Urine Stat Lab 08/20/24 14:05 Completed UA [Urinalysis and Microscopic] Stat Lab 08/20/24 14:05 Completed Urine , HCG Qual. Stat Lab 08/20/24 14:05 Completed Vaginitis Plus/HSV Stat Lab 08/20/24 14:05 Received Urine Culture Stat Micro 08/20/24 14:05 Received Medical Decision Narrative: In summary patient is a 24-year-old female past medical history described above who presents emergency department for evaluation of a drug test and STD screening. Patient is hemodynamically stable nontoxic-appearing upon arrival, afebrile, nontender on abdominal exam. Workup will be conducted with vaginitis plus swab which will be self collected, urinalysis, urine test, urine drug screen. No initial interventions are indicated and workup with imaging was considered but will be deferred given that she has no acute emergent complaints. Results reviewed by me, drug screen negative hCG negative urinalysis significant inflammation with 4+ bacteria nitrate negative urinary tract infection. Shared decision-making discussion was had over prophylactic treatment for STI given excessive pyuria but patient elected to defer and undergo empiric treatment for UTI at this time we will follow the results. Patient is appropriate for discharge at this time. Critical Care Critical Care Time Critical Care Time: No
[2024-08-20 13:36] VITALS: BP 133/80; PULSE 84; RESP 17; TEMP 36.7; O2SAT 100; BMI 30.9
[2024-08-20 14:12] LABS: Microscopic, Urine URINE MICROSCOPIC (MICROSCOPIC)
[2024-08-20 14:19] LABS: Urine Pregnancy, HCG Qual. Negative (Negative)
--- NOTE | 2024-08-20 14:28 | PC.NURSE ---
confirmed lab received pts urine and swab
[2024-08-20 14:29] LABS: Appearance,Urine CLEAR (Clear); Bilirubin,Urine Negative (Negative); Blood, Urine 3+ (Negative); Color,Urine YELLOW (Yellow); Glucose,Urine (UA) Negative (Negative); Ketones,Urine Negative (Negative); Leukocyte Esterase,Urine 3+ (Negative); Nitrate,Urine Negative (Negative); PH,Urine 6.5 (5.0-8.5); Protein,Urine Negative (Negative); Specific Gravity, Urine <= 1.005 (1.005-1.030); Urobilinogen,Urine 0.2 EU/dl (0.2)
[2024-08-20 14:44] LABS: Opiate Screen,Urine Negative ng/ml (<300); Phencyclidine Screen,Urine Negative ng/ml (<25)
[2024-08-20 14:51] LABS: Squamous Epithelial Cell,Urine Occasional #/hpf (0-5); WBC,Urine 50-100 #/hpf (0-3)
[2024-08-20 14:52] LABS: Bacteria,Urine 4+ /lpf
[2024-08-20 15:07] LABS: Amphetamine/Metha Screen,Urine Negative ng/ml (<1000); Barbiturates Screen,Urine Negative ng/ml (<200); Benzodiazepines Screen,Urine Negative ng/ml (<200); Cannabinoid Screen,Urine Negative ng/ml (<50); Cocaine Screen,Urine Negative ng/ml (<300); Methadone Screen,Urine Negative ng/ml (<300)
[2024-08-20 15:31] VITALS: BP 125/78; PULSE 82; RESP 16; TEMP 36.7; O2SAT 99
--- NOTE | 2024-08-22 17:01 | PC.NURSE ---
URINE CULTURE DISCUSSED WITH DR OSWALD, NO NEW ORDERS
[2024-08-25 14:27] LABS: Atopobium vaginae High - 2 Score (.); BVAB2 Low - 0 Score (.); Candida albicans NAA Negative (Negative); Candida glabrata Negative (Negative); Chlamydia Trachomatis NAA Negative (Negative); HSV 1 NAA Negative (Negative); HSV 2 NAA Negative (Negative); Megasphaera 1 High - 2 Score (.); Neisseria gonorrhoeae NAA Negative (Negative); Trich vag NAA Negative (Negative)
--- NOTE | 2024-08-26 09:08 | PC.NURSE ---
I discussed the pts vaginitis/HSV results with . No change in pts treatment at this time.
== END 2024-08-20 15:32 | disposition home or self-care (01) ==
PROVIDERS: Emergency Provider Emergency Medicine
DX: N39.0 Urinary tract infection, site not specified (principal); Z11.59 Encounter for screening for other viral diseases; Z02.83 Encounter for blood-alcohol and blood-drug test
CPT/HCPCS: 99283; 80307; 81001; 81025; 87086; 87088; 87186; 87491; 87529; 87591; 87661; 87798; 87801

== ENCOUNTER 2024-09-21 05:39 | Emergency (ER) | payer MEDICAID, SELFPAY ==
--- NOTE | 2024-09-21 05:44 | ED_ITS ---
Discharge Plan Disposition Patient Disposition: Home, Self-Care Prescriptions Prescriptions: New ondansetron HCl 4 mg tablet 4 mg PO Q8H PRN (Reason: nausea and vomiting) 5 Days Qty: 30 0RF No Action nitrofurantoin monohyd/m-cryst [Macrobid] 100 mg capsule 100 mg PO BID 5 Days Qty: 10 0RF Rx Instructions: must administer with a meal/food Referrals Follow up/Referrals: Provider,Referral, MD [Primary Care Provider] - See instructions Activity Restrictions/Add. Instructions Additional Instructions/Restrictions: Please take Tylenol ibuprofen and Zofran as needed for symptoms. Please follow- up with your primary care provider. Please return to the emergency department if you develop any new or worsening symptoms or become concerned for your health. Clinical Impressions Clinical Impression: Vomiting Qualifiers: Nausea presence: with nausea Instructions Patient Instructions: DI for Diarrhea and Traveler's Diarrhea -- Adult, DI for Diarrhea and Traveler's Diarrhea -- Child, DI for Nausea -- Adult, DI for Nausea -- Child Print Language Print Language: Malian Discharge ED Provider: Julio César Luke General Adult HPI General Chief complaint: Nausea/Vomiting/Diarrhea Stated complaint: difficulty breathing, vomiting Time Seen by Provider: 09/21/24 05:44 History of Present Illness HPI narrative: 24-year-old female without significant past medical history presents for abdominal pain nausea and vomiting. She reports that tonight she started vomiting and was dry heaving for like an hour and was having trouble catching her breath. She feels better now. She reports that she has had nasal conges tion for a few days. Denies fever. Denies history of significant drug or alcohol use. No history of abdominal surgery. She is currently on her menstrual period. Reports the abdominal pain is bilateral upper abdomen and epigastric. Related Data Previous Rx's ?Medication ?Instructions ?Recorded nitrofurantoin 100 mg PO BID 5 days #10 caps 08/20/24 monohydrate/macrocrystals 100 mg capsule (Macrobid) ondansetron HCl 4 mg tablet 4 mg PO Q8H PRN nausea and 09/21/24 vomiting 5 days #30 tabs Allergies Allergy/AdvReac Type Severity Reaction Status Date / Time cinnamon Allergy Unknown Verified 07/22/24 13:45 [facility] Disclaimer: The information contained in this section may have been updated after the patient was seen, as this information can be updated by other users. 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 Trichomoniasis of vagina Anemia, Late care Surgical History History of delivery Family History Other Family history non-contributory Social History Smoking Status: Current every day smoker tobacco type: e-cigarettes alcohol intake: never substance use type: denies use current occupational status: unemployed Travel in the last 8 weeks?: None Have you lived/traveled outside [place] in past 30 days?: No Contact w/someone who lives/traveled outside [place] past 30 days?: No Exposure to someone with infectious disease in past 14 days?: No Do you have a fever (greater than 100.4 F or 38 C)?: No Have you tested positive for COVID-19?: No Exposed to someone with COVID-19 in past 14 days?: No Do you have a sore throat?: No Do you have a cough?: No Do you have any weakness?: No Do you have any diarrhea?: No Are you experiencing any unusual bleeding?: No Do you have any muscle aches/pain?: No Do you have any abdominal pain?: No Are you experiencing loss of taste or smell?: No Other 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 Have you received the Flu Vaccine for this season: No Have you received the Pneumonia Vaccine: No ROS Obtained: Yes All systems reviewed & no additional complaints except as documented Physical Exam General General appearance: alert and in no apparent distress Head Head exam: atraumatic and normocephalic Eye Eye exam: Present normal appearance, PERRL and EOMI ENT ENT exam: Present normal oropharynx and normal external ear exam Neck Neck exam: Present normal inspection and full ROM Chest Chest inspection: Present normal inspection and symmetric chest wall rise; Absent tenderness Respiratory Respiratory exam: Present normal lung sounds bilaterally; Absent respiratory distress Cardiovascular Cardiovascular exam: Present regular rate and normal rhythm Abdominal Exam Abdominal exam: Present soft; Absent distention, tenderness or guarding Extremities Exam Extremities exam: Present normal inspection; Absent edema or joint swelling Back Exam Back exam: Present normal inspection; Absent tenderness Neurological Exam Neurological exam: Present alert and oriented X3; Absent motor sensory deficit Psychiatric Psychiatric exam: Present normal affect and normal mood Skin Skin exam: Present warm, dry and normal color Lymphatic Lymphatic Findings: no adenopathy Medical Decision Making Medical Records Medical records reviewed: Yes I reviewed the patient's medical records. Screening: Per USPSTF and CDC recommendations, given the prevalence of disease in our region, it is our hospital?s policy to screen for HIV and viral Hepatitis for all patients aged 18 and over and those with ongoing risk factors. Vadim Inquiry Pt receiving controlled substance: No Vadmi was queried for this patient: No Vital Signs: 09/21/24 05:45 Temperature 98.4 F Temperature Source Oral Pulse Rate [Left] 92 H Respiratory Rate 18 Blood Pressure [Right Arm] 122/78 Blood Pressure Mean [Right Arm] 92 02 Sat by Pulse Oximetry 99 Oxygen Delivery Method Room Air Lab Data Lab results reviewed: Yes I reviewed the patient's lab results. Orders (Tests/Meds): ED MEDICATIONS Discontinued Medications Generic Name Dose Route Start Last Admin Trade Name Dixon PRN Reason Stop Dose Admin Acetaminophen 1,000 mg 09/21/24 05:51 09/21/24 05:56 Acetaminophen 500mg Tab PO 09/21/24 05:52 1,000 mg ONCE ONE Administration Ibuprofen 600 mg 09/21/24 05:51 09/21/24 05:56 Ibuprofen 600 Mg Tablet PO 09/21/24 05:52 600 mg ONCE ONE Administration Medical Decision Narrative: 24-year-old female without significant past medical history presents for 1 hour of vomiting and abdominal pain. History was obtained via interactive discussion with patient. On arrival, patient is [afebrile, hemodynamically stable, satting appropriately, alert, oriented x4, GCS 15], moving all extremities spontaneously. Full physical exam performed and significant for mild left upper quadrant right upper quadrant and epigastric tenderness. Differential includes but is not limited to gastroenteritis cholecystitis, pancreatitis.. Patient was given Tylenol ibuprofen and Zofran for symptomatic management and correction of underlying abnormalities. Workup initiated including bedside ul trasound. On my evaluation, right upper quadrant ultrasound shows normal size gallbladder without pericholecystic fluid or stones or gallbladder wall thickening. Blood work, CT imaging was considered but deemed unnecessary given history and exam. Patient was discharged in stable condition prescription for Zofran. Return precautions given. Procedures Risk/Benefits of Procedure(s) Were Explained: Yes Critical Care Critical Care Time Critical Care Time: No
[2024-09-21 05:45] VITALS: BP 122/78; PULSE 92; RESP 18; TEMP 36.9; O2SAT 99; BMI 30.9
[2024-09-21] MEDS: ACETAMINOPHEN 500MG TAB 1000 MG PO (05:56)
[2024-09-21] MEDS: IBUPROFEN 600 MG TABLET PO (05:56)
[2024-09-21] MEDS: ONDANSETRON 4MG ODT 4 MG SL (06:00)
[2024-09-21 06:22] VITALS: BP 120/69; PULSE 87; RESP 18; TEMP 36.9; O2SAT 99
== END 2024-09-21 06:04 | disposition home or self-care (01) ==
PROVIDERS: Emergency Provider Emergency Medicine
DX: R10.13 Epigastric pain (principal); R10.10 Upper abdominal pain, unspecified; R11.2 Nausea with vomiting, unspecified
CPT/HCPCS: 99284; Q0162